=== PATIENT | male | born 1965 | race Caucasian/White ===

== ENCOUNTER 2018-10-23 13:15 | Inpatient (IN) | payer MEDICAID ==
[2018-10-23] MEDS ORDERED: Albuterol/Ipratropium 3.0-0.5 MG/3 ML Neb Soln NEB ONE (13:35)
[2018-10-23] MEDS ORDERED: Sodium Chloride 0.9% 10 ML Syringe FLUSH PRN (13:36)
[2018-10-23] MEDS ORDERED: Pantoprazole 40 MG Vial IVPUSH ONE (13:36)
[2018-10-23] MEDS ORDERED: Sodium Chloride 0.9% 2.5 ML Syringe FLUSH PRN (13:36)
[2018-10-23] MEDS ORDERED: Sodium Chloride 0.9% 1,000 ML IV ONE (13:36)
[2018-10-23] MEDS ORDERED: HYDROmorphone 1 MG/ML Syringe IVPUSH ONE ×2 (13:36→14:34)
[2018-10-23] MEDS ORDERED: Ondansetron 4 MG/2 ML SDV IVPUSH ONE (13:39)
--- NOTE | 2018-10-23 13:39 | EDM.PDOC ---
ED HPI GENERAL MEDICAL PROBLEM - General Chief Complaint: General Stated Complaint: FALL Time Seen by Provider: 10/23/18 13:24 - History of Present Illness INITIAL COMMENTS - FREE TEXT/NARRATIVE: HISTORY AND PHYSICAL: History of present illness: The patient is a 53-year-old male who says he has no stated medical problems and no GI cardiac or pulmonary history and presents with 2 complaints; first he had a fall 2 days ago and landed onto his left ribs and has had persistent pain since that time. He says he can't take a deep breath and feels short of breath and has a cough as a result of that fall. The patient is a smoker of cigarettes but denies drug use. He has been not taking much medication to help with the pain. He says he took some Aleve yesterday and nothing today. The patient says in general he has no history of GI problems such as acid reflux and heartburn or any abdominal issues in the past. Today he was doing his normal activities and approximately 2-3 hours ago he had sudden onset of diffuse upper abdominal pain which she is very vague about. He says it is very sharp and severe and he was nauseated with this but had no vomiting. He says he had one large diarrheal bowel movement that was maroon in color and he has never had that before. The patient took no [id number] meds for his stomach issues. The patient says he feels like he has to cough and he has pain without any can't take a deep breath and he also says that his abdominal pain is inhibiting his breathing but he has no specific chest pain. The patient says his abdominal pain is radiating to her shoulders. He has no specific midline back pain and no neurosensory changes or weakness in his legs. When he fell 2 days he did not hit his head pass out or black out and has no head neck or back pain. He has no extremity complaints. Patient also says that currently today after the bowel movement with a blood he feels very lightheaded but he has not passed out or black out. Review of systems: As per history of present illness and below otherwise all systems reviewed and negative. Past medical history: As per history of present illness and as reviewed below otherwise noncontributory. Surgical history: As per history of present illness and as reviewed below otherwise noncontributory. Social history: No reported history of drug or alcohol abuse. Family history: As per history of present illness and as reviewed below otherwise noncontributory. Physical exam: General: Well-developed well-nourished man who is nontoxic and looks very uncomfortable in the ED. He has a harsh cough which is dry in nature and he seems to be splinting when he is trying to take breaths. Vital signs are noted by me. Patient does not like to lie flat as he says he feels very uncomfortable. HEENT: Atraumatic, normocephalic, pupils reactive, negative for conjunctival pallor or scleral icterus, mucous membranes moist, throat clear, neck supple, nontender, trachea midline. Lungs: Image breath sounds and effort throughout with splinting and there is coarse breath sounds bilaterally decreased air exchange in the bases up to mid field and some scattered wheezing appreciated bilaterally, breath sounds equal bilaterally, chest wall and ribs are tender at the left mid axillary line without any ecchymosis erythema or crepitus. Heart: S1S2, regular, rhythm and slightly bradycardic rate on my evaluation no overt murmurs Abdomen: Soft, nondistended, and bowel sounds are very hypoactive. The patient has diffuse upper abdominal tenderness from the umbilicus upwards and it does not localize right or left and he has voluntary guarding and some rebound on my evaluation. I cannot evaluate for hepatosplenomegaly due to the patient's inability to relax. The lower abdomen seems softer and less tender bilaterally. Negative for costovertebral tenderness. Pelvis: Stable nontender. Genitourinary: Deferred. Rectal: Deferred. Extremities: Atraumatic, negative for cords or calf pain. Neurovascular unremarkable. Full range of motion without defects or deficits Neuro: Awake, alert, oriented. Cranial nerves II through XII unremarkable. Cerebellum unremarkable. Motor and sensory unremarkable throughout. Exam nonfocal. Diagnostics: CBC CMP INR EKG lactic acid amylase lipase H. pylori troponin left ribs with chest x-ray upright abdomen CT scan of the abdomen and pelvis Therapeutics: IV O2 monitor IV fluids Dilaudid Zofran duoneb Protonix 1503: Case was discussed with the surgeon on-call Dr Natarajan; he is aware of all the lab test results and the CT scan as well as the x-rays and will come and see the patient and evaluate for further care. I discussed with the patient all the testing results and the plan. 1518: Dr NATARAJAN was here in the ED and looked at CT and has left to review it with the radiologist and will return to evaluate the patient 1530: Dr Natarajan is here discussing options with the patient for care plan. Impression: Upper abdominal pain with episode of melena, small free air probable perforated ulcer Fall subacute with left rib contusion Definitive disposition and diagnosis as appropriate pending reevaluation and review of above. Abdominal Pain Score (Numeric/FACES): 10 - Related Data Allergies Allergy/AdvReac Type Severity Reaction Status Date / Time No Known Allergies Allergy Verified 10/23/18 13:23 Home Meds: Home Meds . [No Known Home Meds] 02/24/14 [History] Past Medical History - Past Health History Medical/Surgical History: Denies Medical/Surgical History - Infectious Disease History Infectious Disease History: Reports: Chicken Pox Social & Family History - Family History Family Medical History: Noncontributory - Tobacco Use Smoking Status *Q: Current Every Day Smoker Years of Tobacco use: 40 Packs/Tins Daily: 1 - Recreational Drug Use Recreational Drug Use: No ED ROS GENERAL - Review of Systems Review Of Systems: ROS reveals no pertinent complaints other than HPI. ED EXAM, GENERAL - Physical Exam Exam: See Below (See dictation) Course - Vital Signs Last Recorded V/S: Last Vital Signs Temp Pulse 66 10/23/18 13:36 Resp 16 10/23/18 13:36 BP 118/69 10/23/18 13:36 Pulse Ox 95 10/23/18 13:36 - Orders/Labs/Meds Orders: Active Orders 24 hr Category Date Time Status Cardiac Monitoring [RC] . DIRECTED Care 10/23/18 13:34 Active EKG Documentation Completion [RC] STAT Care 10/23/18 13:34 Active Notify Provider Consults [RC] ASDIRECTED Care 10/23/18 15:06 Active Oxygen Therapy, ED [RC] ASDIRECTED Care 10/23/18 13:34 Active Pulse Oximetry [RC] ASDIRECTED Care 10/23/18 13:34 Active RT Aerosol Therapy [RC] ASDIRECTED Care 10/23/18 13:36 Active Consult to Physician [CONS] Stat Cons 10/23/18 15:06 Active Lactated Ringers [Ringers, Lactated] 1,000 ml Med 10/23/18 15:00 Active IV ASDIRECTED Sodium Chloride 0.9% [Saline Flush] Med 10/23/18 13:36 Active 10 ml FLUSH ASDIRECTED PRN Sodium Chloride 0.9% [Saline Flush] Med 10/23/18 13:36 Active 2.5 ml FLUSH ASDIRECTED PRN Saline Lock Insert [OM.PC] Stat Oth 10/23/18 13:34 Ordered Medication Orders Lactated Ringer's (Ringers, Lactated) 1,000 mls @ 150 mls/hr IV ASDIRECTED KENTRELL Sodium Chloride (Saline Flush) 10 ml FLUSH ASDIRECTED PRN PRN Reason: Keep Vein Open Last Admin: 10/23/18 13:49 Dose: 10 ml Sodium Chloride (Saline Flush) 2.5 ml FLUSH ASDIRECTED PRN PRN Reason: Keep Vein Open Last Admin: 10/23/18 13:48 Dose: 2.5 ml Labs: Laboratory Tests 10/23/18 10/23/18 10/23/18 Range/Units 13:35 13:35 13:35 WBC 8.37 (4.0-11.0) K/uL RBC 4.83 (4.50-5.90) M/uL Hgb 15.2 (13.0-17.0) g/dL Hct 43.9 (38.0-50.0) % MCV 90.9 (80.0-98.0) fL MCH 31.5 (27.0-32.0) pg MCHC 34.6 (31.0-37.0) g/dL RDW Std Deviation 41.9 (28.0-62.0) fl RDW Coeff of Sarah 13 (11.0-15.0) % Plt Count 271 (150-400) K/uL MPV 10.40 (7.40-12.00) fL Neut % (Auto) 76.5 (48.0-80.0) % Lymph % (Auto) 12.4 L (16.0-40.0) % Crisp % (Auto) 10.6 (0.0-15.0) % Eos % (Auto) 0.4 (0.0-7.0) % Baso % (Auto) 0.1 (0.0-1.5) % Neut # (Auto) 6.4 H (1.4-5.7) K/uL Lymph # (Auto) 1.0 (0.6-2.4) K/uL Crisp # (Auto) 0.9 H (0.0-0.8) K/uL Eos # (Auto) 0.0 (0.0-0.7) K/uL Baso # (Auto) 0.0 (0.0-0.1) K/uL Nucleated RBC % 0.0 /100WBC Nucleated RBCs # 0 K/uL INR 1.05 Lactate (0.20-2.00) mmol/L Sodium 138 (136-148) mmol/L Potassium 3.7 (3.5-5.1) mmol/L Chloride 103 (98-107) mmol/L Carbon Dioxide 22.2 (21.0-32.0) mmol/L BUN 13 (7.0-18.0) mg/dL Creatinine 1.0 (0.8-1.3) mg/dL Est Cr Clr Drug Dosing TNP Estimated GFR (MDRD) > 60.0 ml/min Glucose 103 (74-106) mg/dL Calcium 9.4 (8.5-10.1) mg/dL Total Bilirubin 0.9 (0.2-1.0) mg/dL AST 31 (15-37) IU/L ALT 26 (14-63) IU/L Alkaline Phosphatase 51 (46-116) U/L Troponin I < 0.050 (0.000-0.056) ng/mL Total Protein 7.6 (6.4-8.2) g/dL Albumin 3.9 (3.4-5.0) g/dL Globulin 3.7 (2.6-4.0) g/dL Albumin/Globulin Ratio 1.1 (0.9-1.6) Amylase 42 (25-115) U/L Lipase 89 (73-393) U/L H. pylori IgG Antibody (NEG) 10/23/18 10/23/18 Range/Units 13:35 13:35 WBC (4.0-11.0) K/uL RBC (4.50-5.90) M/uL Hgb (13.0-17.0) g/dL Hct (38.0-50.0) % MCV (80.0-98.0) fL MCH (27.0-32.0) pg MCHC (31.0-37.0) g/dL RDW Std Deviation (28.0-62.0) fl RDW Coeff of Sarah (11.0-15.0) % Plt Count (150-400) K/uL MPV (7.40-12.00) fL Neut % (Auto) (48.0-80.0) % Lymph % (Auto) (16.0-40.0) % Crisp % (Auto) (0.0-15.0) % Eos % (Auto) (0.0-7.0) % Baso % (Auto) (0.0-1.5) % Neut # (Auto) (1.4-5.7) K/uL Lymph # (Auto) (0.6-2.4) K/uL Crisp # (Auto) (0.0-0.8) K/uL Eos # (Auto) (0.0-0.7) K/uL Baso # (Auto) (0.0-0.1) K/uL Nucleated RBC % /100WBC Nucleated RBCs # K/uL INR Lactate 1.2 (0.20-2.00) mmol/L Sodium (136-148) mmol/L Potassium (3.5-5.1) mmol/L Chloride (98-107) mmol/L Carbon Dioxide (21.0-32.0) mmol/L BUN (7.0-18.0) mg/dL Creatinine (0.8-1.3) mg/dL Est Cr Clr Drug Dosing Estimated GFR (MDRD) ml/min Glucose (74-106) mg/dL Calcium (8.5-10.1) mg/dL Total Bilirubin (0.2-1.0) mg/dL AST (15-37) IU/L ALT (14-63) IU/L Alkaline Phosphatase (46-116) U/L Troponin I (0.000-0.056) ng/mL Total Protein (6.4-8.2) g/dL Albumin (3.4-5.0) g/dL Globulin (2.6-4.0) g/dL Albumin/Globulin Ratio (0.9-1.6) Amylase (25-115) U/L Lipase (73-393) U/L H. pylori IgG Antibody NEGATIVE (NEG) Meds: Medications Generic Name Dose Route Start Last Admin Trade Name Freq PRN Reason Stop Dose Admin Lactated Ringer's 1,000 mls @ 150 mls/hr 10/23/18 15:00 Ringers, Lactated IV ASDIRECTED KENTRELL Sodium Chloride 10 ml 10/23/18 13:36 10/23/18 13:49 Saline Flush FLUSH 10 ml ASDIRECTED PRN Administration Keep Vein Open Sodium Chloride 2.5 ml 10/23/18 13:36 10/23/18 13:48 Saline Flush FLUSH 2.5 ml ASDIRECTED PRN Administration Keep Vein Open Discontinued Medications Generic Name Dose Route Start Last Admin Trade Name Freq PRN Reason Stop Dose Admin Albuterol/Ipratropium 3 ml 10/23/18 13:35 10/23/18 13:46 Duoneb 3.0-0.5 Mg/3 Ml NEB 10/23/18 13:36 3 ml ONETIME ONE Administration Hydromorphone HCl 1 mg 10/23/18 13:36 10/23/18 13:48 Dilaudid IVPUSH 10/23/18 13:37 1 mg ONETIME ONE Administration Hydromorphone HCl 1 mg 10/23/18 14:34 10/23/18 14:46 Dilaudid IVPUSH 10/23/18 14:35 1 mg ONETIME ONE Administration Sodium Chloride 1,000 mls @ 999 mls/hr 10/23/18 13:36 10/23/18 14:33 Normal Saline IV 10/23/18 14:36 999 mls/hr STAT ONE Infusion Ondansetron HCl 4 mg 10/23/18 13:39 10/23/18 13:48 Zofran IVPUSH 10/23/18 13:40 4 mg ONETIME ONE Administration Pantoprazole Sodium 80 mg 10/23/18 13:36 10/23/18 13:49 Protonix Iv IVPUSH 10/23/18 13:37 80 mg .BOLUS ONE Administration Departure - Departure Time of Disposition: 15:57 Disposition: Still A Patient 30 Condition: Fair Clinical Impression: Perforated ulcer - Discharge Information Referrals: PCP,Unknown [Primary Care Provider] - Forms: ED Department Discharge - My Orders Last 24 Hours: My Active Orders 10/23/18 13:34 Cardiac Monitoring [RC] . DIRECTED EKG Documentation Completion [RC] STAT Oxygen Therapy, ED [RC] ASDIRECTED Pulse Oximetry [RC] ASDIRECTED Saline Lock Insert [OM.PC] Stat 10/23/18 13:36 RT Aerosol Therapy [RC] ASDIRECTED Sodium Chloride 0.9% [Saline Flush] 10 ml FLUSH ASDIRECTED PRN Sodium Chloride 0.9% [Saline Flush] 2.5 ml FLUSH ASDIRECTED PRN 10/23/18 15:00 Lactated Ringers [Ringers, Lactated] 1,000 ml IV ASDIRECTED 10/23/18 15:06 Notify Provider Consults [RC] ASDIRECTED Consult to Physician [CONS] Stat - Assessment/Plan Last 24 Hours: My Active Orders 10/23/18 13:34 Cardiac Monitoring [RC] . DIRECTED EKG Documentation Completion [RC] STAT Oxygen Therapy, ED [RC] ASDIRECTED Pulse Oximetry [RC] ASDIRECTED Saline Lock Insert [OM.PC] Stat 10/23/18 13:36 RT Aerosol Therapy [RC] ASDIRECTED Sodium Chloride 0.9% [Saline Flush] 10 ml FLUSH ASDIRECTED PRN Sodium Chloride 0.9% [Saline Flush] 2.5 ml FLUSH ASDIRECTED PRN 10/23/18 15:00 Lactated Ringers [Ringers, Lactated] 1,000 ml IV ASDIRECTED 10/23/18 15:06 Notify Provider Consults [RC] ASDIRECTED Consult to Physician [CONS] Stat
[2018-10-23 14:09] LABS: CHLORIDE,CL 103 mmol/L (98-107); SODIUM,NA 138 mmol/L (136-148)
--- NOTE | 2018-10-23 14:21 | CR ---
EXAMINATION: Abdomen HISTORY: Pain COMPARISON: None TECHNIQUE: AP views FINDINGS: There is no free air under the diaphragm. There is a nonobstructive bowel gas pattern. No abnormal calcifications project over the kidneys. There are aspect of the abdomen not imaged. IMPRESSION: No acute findings or evidence of a bowel obstruction.
--- NOTE | 2018-10-23 14:24 | CR ---
EXAMINATION: AP chest and left RIBS HISTORY: Trauma. FINDINGS: The trachea is midline. The cardiomediastinal silhouette is within normal limits. No pulmonary infiltrates, effusions or pneumothorax. Osseous structures appear unremarkable. No displaced rib fracture identified. IMPRESSION: No acute cardiopulmonary process.
--- NOTE | 2018-10-23 14:50 | CT ---
CT of the abdomen and pelvis with contrast. HISTORY: Pain TECHNIQUE: Axial CT images were obtained of the abdomen and pelvis following administration of 100 mL of Isovue-370 in the right antecubital fossa without complication. Coronal and sagittal reconstructions obtained. FINDINGS: The lung bases are clear. Mild focal fatty infiltration near the falciform ligament. Spleen, adrenal glands, and pancreas appear normal. The gallbladder is normal. No retroperitoneal lymphadenopathy. There is a small amount of abdominal ascites and free air. Mild induration of the omentum within the right abdomen and lower quadrant. The kidneys enhance and function symmetrically without evidence of obstructive uropathy. There is a cyst within the upper pole of the right kidney. The large and small bowel are normal in caliber without evidence of obstruction. No focal pericolonic inflammation or stranding. The appendix appears normal. Urinary bladder wall is mildly thickened however minimally filled. No bulky pelvic lymphadenopathy. No suspicious osseous abnormalities identified. IMPRESSION: 1. Small amount of abdominal ascites and a trace amount of free air noted within the abdomen. The exact source is not identified.
[2018-10-23] MEDS ORDERED: cefOXitin 2 GM in Premix Bag 1 BAG IV ONE (15:59)
[2018-10-23] MEDS ORDERED: Lactated Ringers 1,000 ML IV SCH (16:00)
[2018-10-23] MEDS: Lactated Ringers 1,000 ML IV SCH ×2 (16:04→23:11)
--- NOTE | 2018-10-23 16:07 | PCM.SN ---
- Free Text/Narrative Note: pt seen, chart reviewed; free air, abd pain, wendy stool or BRBPR X 2 days; would benefit from timely ex lap, possible bowel resection, possible ostomy; r/ b d/w pt, pt concurred and proceed with surgery; h/p dictated; see dictation [id number]
[2018-10-23] MEDS ORDERED: cefOXitin 2 GM in Sodium Chloride 0.9% 100 ML IV ONE (16:10)
[2018-10-23] MEDS ORDERED: Midazolam 1 MG/ML 2 ML SDV ONE (16:50)
[2018-10-23] MEDS ORDERED: Ondansetron 4 MG/2 ML SDV ONE (16:50)
[2018-10-23] MEDS ORDERED: Rocuronium 10 MG/ML 10 ML Syringe ONE (16:50)
[2018-10-23] MEDS ORDERED: Propofol 200 MG/20 ML SDV ONE (16:50)
[2018-10-23] MEDS ORDERED: Lidocaine 2% 5 ML SDV ONE (16:50)
[2018-10-23] MEDS ORDERED: fentaNYL 250 MCG/5 ML SDV ONE (16:50)
--- NOTE | 2018-10-23 17:51 | PCM.PREANE ---
Preanesthetic Assessment - Anesthesia/Transfusion/Family Hx Anesthesia History: Prior Anesthesia Without Reaction Family History of Anesthesia Reaction: No Intubation History: Unknown - Review of Systems General: No Symptoms Pulmonary: No Symptoms Cardiovascular: No Symptoms Gastrointestinal: Abdominal Pain Neurological: No Symptoms Other: Reports: None - Physical Assessment O2 Sat by Pulse Oximetry: 95 Respiratory Rate: 16 Vital Signs: Last Vital Signs Temp Pulse 66 10/23/18 13:36 Resp 16 10/23/18 13:36 BP 118/69 10/23/18 13:36 Pulse Ox 95 10/23/18 13:36 ASA Class: 2E Mental Status: Alert & Oriented x3 Airway Class: Mallampati = 2 Dentition: Reports: Normal Dentition, [place](s) (gold crown #9) Thyro-Mental Finger Breadths: 3 Mouth Opening Finger Breadths: 3 ROM/Head Extension: Full Lungs: Clear to Auscultation, Normal Respiratory Effort Cardiovascular: Regular Rate, Regular Rhythm - Lab Values: Laboratory Last Values WBC 8.37 K/uL (4.0-11.0) 10/23/18 13:35 RBC 4.83 M/uL (4.50-5.90) 10/23/18 13:35 Hgb 15.2 g/dL (13.0-17.0) 10/23/18 13:35 Hct 43.9 % (38.0-50.0) 10/23/18 13:35 MCV 90.9 fL (80.0-98.0) 10/23/18 13:35 MCH 31.5 pg (27.0-32.0) 10/23/18 13:35 MCHC 34.6 g/dL (31.0-37.0) 10/23/18 13:35 RDW Std Deviation 41.9 fl (28.0-62.0) 10/23/18 13:35 RDW Coeff of Sarah 13 % (11.0-15.0) 10/23/18 13:35 Plt Count 271 K/uL (150-400) 10/23/18 13:35 MPV 10.40 fL (7.40-12.00) 10/23/18 13:35 Neut % (Auto) 76.5 % (48.0-80.0) 10/23/18 13:35 Lymph % (Auto) 12.4 % (16.0-40.0) L 10/23/18 13:35 [place] % (Auto) 10.6 % (0.0-15.0) 10/23/18 13:35 Eos % (Auto) 0.4 % (0.0-7.0) 10/23/18 13:35 Baso % (Auto) 0.1 % (0.0-1.5) 10/23/18 13:35 Neut # (Auto) 6.4 K/uL (1.4-5.7) H 10/23/18 13:35 Lymph # (Auto) 1.0 K/uL (0.6-2.4) 10/23/18 13:35 [place] # (Auto) 0.9 K/uL (0.0-0.8) H 10/23/18 13:35 Eos # (Auto) 0.0 K/uL (0.0-0.7) 10/23/18 13:35 Baso # (Auto) 0.0 K/uL (0.0-0.1) 10/23/18 13:35 Nucleated RBC % 0.0 /100WBC 10/23/18 13:35 Nucleated RBCs # 0 K/uL 10/23/18 13:35 INR 1.05 10/23/18 13:35 Lactate 1.2 mmol/L (0.20-2.00) 10/23/18 13:35 Sodium 138 mmol/L (136-148) 10/23/18 13:35 Potassium 3.7 mmol/L (3.5-5.1) 10/23/18 13:35 Chloride 103 mmol/L (98-107) 10/23/18 13:35 Carbon Dioxide 22.2 mmol/L (21.0-32.0) 10/23/18 13:35 BUN 13 mg/dL (7.0-18.0) 10/23/18 13:35 Creatinine 1.0 mg/dL (0.8-1.3) 10/23/18 13:35 Est Cr Clr Drug Dosing TNP 10/23/18 13:35 Estimated GFR (MDRD) > 60.0 ml/min 10/23/18 13:35 Glucose 103 mg/dL (74-106) 10/23/18 13:35 Calcium 9.4 mg/dL (8.5-10.1) 10/23/18 13:35 Total Bilirubin 0.9 mg/dL (0.2-1.0) 10/23/18 13:35 AST 31 IU/L (15-37) 10/23/18 13:35 ALT 26 IU/L (14-63) 10/23/18 13:35 Alkaline Phosphatase 51 U/L (46-116) 10/23/18 13:35 Troponin I < 0.050 ng/mL (0.000-0.056) 10/23/18 13:35 Total Protein 7.6 g/dL (6.4-8.2) 10/23/18 13:35 Albumin 3.9 g/dL (3.4-5.0) 10/23/18 13:35 Globulin 3.7 g/dL (2.6-4.0) 10/23/18 13:35 Albumin/Globulin Ratio 1.1 (0.9-1.6) 10/23/18 13:35 Amylase 42 U/L (25-115) 10/23/18 13:35 Lipase 89 U/L (73-393) 10/23/18 13:35 H. pylori IgG Antibody NEGATIVE (NEG) 10/23/18 13:35 - Allergies Allergies/Adverse Reactions: Allergies Allergy/AdvReac Type Severity Reaction Status Date / Time No Known Allergies Allergy Verified 10/23/18 13:23 - Blood Blood Available: No - Anesthesia Plan Pre-Op Medication Ordered: None - Acknowledgements Anesthesia Type Planned: General Anesthesia Pt an Appropriate Candidate for the Planned Anesthesia: Yes Alternatives and Risks of Anesthesia Discussed w Pt/Guardian: Yes Pt/Guardian Understands and Agrees with Anesthesia Plan: Yes PreAnesthesia Questionnaire - Past Health History Medical/Surgical History: Denies Medical/Surgical History Gastrointestinal History: Reports: Other (See Below) (presented with signs of peritonitis) Musculoskeletal History: Reports: Other (See Below) ( ORIF of mandible fx. x2) Other Musculoskeletal History: right hand surgery - Infectious Disease History Infectious Disease History: Reports: Chicken Pox - Past Surgical History Neurological Surgical History: Reports: C-Spine - SUBSTANCE USE Smoking Status *Q: Current Every Day Smoker (1 ppd) Recreational Drug Use History: No - HOME MEDS Home Medications: Home Meds . [No Known Home Meds] 02/24/14 [History] - CURRENT (IN HOUSE) MEDS Current Meds: Current Medications Lactated Ringer's (Ringers, Lactated) 1,000 mls @ 150 mls/hr IV ASDIRECTED KENTRELL Last Admin: 10/23/18 16:04 Dose: 150 mls/hr Lactated Ringer's (Ringers, Lactated) 1,000 mls @ 150 mls/hr IV ASDIRECTED KENTRELL Sodium Chloride (Saline Flush) 10 ml FLUSH ASDIRECTED PRN PRN Reason: Keep Vein Open Last Admin: 10/23/18 13:49 Dose: 10 ml Sodium Chloride (Saline Flush) 2.5 ml FLUSH ASDIRECTED PRN PRN Reason: Keep Vein Open Last Admin: 10/23/18 13:48 Dose: 2.5 ml Discontinued Medications Albuterol/Ipratropium (Duoneb 3.0-0.5 Mg/3 Ml) 3 ml NEB ONETIME ONE Stop: 10/23/18 13:36 Last Admin: 10/23/18 13:46 Dose: 3 ml Fentanyl (Sublimaze) Confirm Administered Dose 250 mcg .ROUTE .STK-MED ONE Stop: 10/23/18 16:51 Hydromorphone HCl (Dilaudid) 1 mg IVPUSH ONETIME ONE Stop: 10/23/18 13:37 Last Admin: 10/23/18 13:48 Dose: 1 mg Hydromorphone HCl (Dilaudid) 1 mg IVPUSH ONETIME ONE Stop: 10/23/18 14:35 Last Admin: 10/23/18 14:46 Dose: 1 mg Sodium Chloride (Normal Saline) 1,000 mls @ 999 mls/hr IV STAT ONE Stop: 10/23/18 14:36 Last Infusion: 10/23/18 14:33 Dose: 999 mls/hr Cefoxitin Sodium 2 gm/ Premix 50 mls @ 100 mls/hr IV ONETIME ONE Stop: 10/23/18 16:28 Cefoxitin Sodium 2 gm/ Sodium (Chloride) 100 mls @ 200 mls/hr IV ONETIME ONE Stop: 10/23/18 16:28 Last Admin: 10/23/18 16:14 Dose: 200 mls/hr Lidocaine (Xylocaine-Mpf 2%) Confirm Administered Dose 5 ml .ROUTE .STK-MED ONE Stop: 10/23/18 16:51 Midazolam HCl (Versed 1 Mg/Ml) Confirm Administered Dose 2 mg .ROUTE .STK-MED ONE Stop: 10/23/18 16:51 Ondansetron HCl (Zofran) 4 mg IVPUSH ONETIME ONE Stop: 10/23/18 13:40 Last Admin: 10/23/18 13:48 Dose: 4 mg Ondansetron HCl (Zofran) Confirm Administered Dose 4 mg .ROUTE .STK-MED ONE Stop: 10/23/18 16:51 Pantoprazole Sodium (Protonix Iv) 80 mg IVPUSH .BOLUS ONE Stop: 10/23/18 13:37 Last Admin: 10/23/18 13:49 Dose: 80 mg Propofol (Diprivan 20 Ml) Confirm Administered Dose 200 mg .ROUTE .STK-MED ONE Stop: 10/23/18 16:51 Rocuronium Viking (Zemuron) Confirm Administered Dose 100 mg .ROUTE .STK-MED ONE Stop: 10/23/18 16:51
[2018-10-23] MEDS ORDERED: Iopamidol 755 MG/ML 200 ML Multipack Bottle IVPUSH STA (18:15)
[2018-10-23] MEDS ORDERED: HYDROmorphone 2 MG/ML Syringe ONE ×2 (18:17→19:19)
[2018-10-23] MEDS ORDERED: Atropine 0.1 MG/ML 10 ML Syringe IVPUSH PRN (20:20)
[2018-10-23] MEDS ORDERED: Naloxone 0.4 MG/ML Syringe IVPUSH PRN (20:20)
[2018-10-23] MEDS ORDERED: 50% Dextrose in Water 50 ML Syringe IVPUSH PRN (20:20)
[2018-10-23] MEDS ORDERED: Atropine 1 MG/ML SDV IVPUSH PRN (20:20)
[2018-10-23] MEDS ORDERED: EPINEPHrine 1 MG/ML SDV IVPUSH ONE (20:20)
[2018-10-23] MEDS ORDERED: fentaNYL 100 MCG/2 ML SDV IVPUSH PRN (20:20)
[2018-10-23] MEDS ORDERED: Albuterol 0.083% 2.5 MG/3 ML Neb Soln NEB PRN (20:20)
[2018-10-23] MEDS ORDERED: Pantoprazole 80 MG in Sodium Chloride 0.9% 100 ML IV SCH (20:30)
--- NOTE | 2018-10-23 20:43 | PCM.OPNOTE ---
- General Post-Op/Procedure Note Date of Surgery/Procedure: 10/23/18 Operative Procedure(s): 1) ex lap. 2) grahm patch. 3) bx gastric ulcer Findings: a 1 cm hole right 1 cm distal to pylorus; grahm patched. 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
[2018-10-23] MEDS: Morphine PF 30 MG/30 ML PCA Vial IV SCH (20:44)
--- NOTE | 2018-10-23 21:10 | PCM.POSTAN ---
POST ANESTHESIA ASSESSMENT - MENTAL STATUS Mental Status: Alert, Oriented - RESPIRATORY Respiratory Status: Respiratory Rate WNL, Airway Patent, O2 Saturation Stable, Supplemental Oxygen - CARDIOVASCULAR CV Status: Pulse Rate WNL, Blood Pressure Stable - GASTROINTESTINAL GI Status: No Symptoms - PAIN Pain Score: 4 (sedate) - POST OP HYDRATION Hydration Status: Adequate & Stable - OBSERVATIONS Free Text/Narrative:: Pt on o2 per face tent and stable with pain control. No nausea at this time and TROUBLE LOCATOR TEST DESK morphine currently onboard.
--- NOTE | 2018-10-23 23:23 | OR ---
SURGEON: Wally Natarajan MD DATE OF PROCEDURE: 10/23/2018 PREOPERATIVE DIAGNOSIS: Perforated viscus. POSTOPERATIVE DIAGNOSIS: Perforated peptic ulcer disease. PROCEDURES PERFORMED: 1. Exploratory laparotomy. 2. Varinder patch. 3. biopsy gastric ulcer COMPLICATION: None. FINDINGS: Very clean cut 1 cm hole, right 1 cm distal to the pylorus and Varinder patch procedure performed. Also, the abdominal cavity is severely contaminated. Doubt this is 4- to 6-hour perforation, more likely a couple of days BRIEF SURGICAL JUSTIFICATION: The patient is a 53-year-old gentleman, complained of a 2-day history of waxing and waning abdominal pain, seen in emergency room. CAT scan showed free air. The patient is now taken to the operating room. DESCRIPTION OF PROCEDURE: The patient was taken to the operating room and placed in supine position. Upon induction of general endotracheal anesthesia, the patient's abdomen was prepped and draped in a sterile fashion. Time-out was being called, the patient identified, procedure identified. A 2 g IV Mefoxin given prophylactically. After assessment of appropriate landmark, a midline incision from epigastric beveled to the right of the umbilicus and down to the pubis was made which entered the peritoneal cavity in a standard fashion. Upon gaining entrance into the peritoneal cavity, encountered a large amount of purulent, bile stained, yellow peritoneal fluid, cloudy. On examination starting with the stomach between the gallbladder and the duodenum and a bit distal to pylorus, a 1 cm gastric ulcer was noted, located at the dependent position of the stomach; and a biopsy was done over there and sent for pathology, and the hole was closed in a vertical mattress fashion using 3-0 Vicryl and followed by Varinder patch using 3-0 silk, anchored at 3 points, and followed by extensive irrigation until the irrigation was clear, irrigated the right gutter and the left gutter and the pelvis, and then the peritoneal cavity was closed with double-stranded #1 PDS, and prior to closing, sponge count was correct and 10 flat GILBERT drain was inserted on the right lower quadrant, and also prior to closing, bowel has been run from the appendix to the rectum and also from appendix to the duodenum and do not find a disease. The peritoneal cavity was closed with double-stranded #1 PDS and skin staple and an appropriate dressing. The patient was awakened, extubated, and transferred to recovery in hemodynamically stable condition. The patient tolerated the procedure well. There were no intraoperative complications. Dr. Natarajan was present through the whole procedure. As always, thank you for the kind referral. DAKOTA RICKETTS /[id number] MTDD
[2018-10-24] MEDS: Acetaminophen 1,000 MG in Premix Bag 1 BAG IV PRN (05:39)
[2018-10-24] MEDS: Lactated Ringers 1,000 ML IV SCH ×3 (05:39→23:38)
[2018-10-24 06:27] LABS: CHLORIDE,CL 106 mmol/L (98-107); SODIUM,NA 139 mmol/L (136-148)
[2018-10-24] MEDS: Morphine PF 30 MG/30 ML PCA Vial IV SCH ×2 (08:34→19:57)
[2018-10-24] MEDS: Nicotine 21 MG/24 Hr Patch TRDERM SCH (08:35)
--- NOTE | 2018-10-24 08:38 | CONS ---
DATE OF CONSULTATION: 10/23/2018 DATE OF : 1965 PRIMARY CARE PHYSICIAN: Unknown PCP REASON FOR CONSULTATION: Concerning question is perforated viscus. HISTORY OF PRESENT ILLNESS: The patient is a 53-year-old gentleman complaining of several day history of abdominal pain, after he fell down on the ice 2 days ago. His main complaint is a little bit like lower ribcage on the left side. In addition, he thinks the pain is more or less doable until this morning at 1100 hours, he knows exactly the time that it happened, the pain intensified. He sought help in the emergency room, had emergent CAT scan, which shows free air. Surgery was then consulted. The patient then remarked that he had some bloody maroon stool this morning, and he was very nauseated for about 2 days and cannot even swallow his saliva. PAST MEDICAL HISTORY: Significant for no diabetes, IN, CVA, or hypertension. PAST SURGICAL HISTORY: No abdominal surgery. ALLERGIES: Please refer to nursing for details. MEDICATIONS: Please refer to nursing for details. SOCIAL HISTORY: The patient is a big time smoker, chain smoker and alcohol user. REVIEW OF SYSTEMS: Same as history of present illness. FAMILY HISTORY: Noncontributory. PHYSICAL EXAMINATION: GENERAL: Very appropriately built gokul. Not fat, not thin. Sitting up and refused to lie down, as he is not comfortable when lying down, very anxious. HEENT: Normocephalic and atraumatic. Sclerae anicteric. LUNGS: Clear to auscultation. HEART: Regular rate and rhythm. ABDOMEN: Soft, nondistended, not tympanitic, but exquisite tenderness in epigastrium. Minimal rebound tenderness. LABORATORY DATA: Upon consultation, white count is 8,000, platelet is 271,000, H and H are 15 and 44. INR is 105. Potassium is 3.7, BUN is 13, creatinine is 1.0. Liver function tests within normal limit. Albumin is 3.9. Amylase and lipase are normal at 42 and 89. CAT scan shows free air. IMPRESSION/PLAN: Free air after trauma/fall or perforated peptic ulcer disease. The patient probably will benefit from exploratory laparotomy, possible bowel resection, possible ostomy. Spent 50 minutes with Radiology. The patient has perforated viscus from the history and physical and pain and also maroon stool and also free air on CAT scan. The patient would benefit from an exploratory laparotomy and possible bowel resection, possible ostomy. Risks and benefits discussed with the patient, and the patient concurred to proceed. Also because sometimes small perforation may not be able to detect and could be a negative laparotomy. The patient concurred to proceed as planned. We will start IV antibiotic and IV fluids and proceed with surgery. The patient concurred. As always, thank you for the kind referral. DAKOTA / JAMARCUS /[id number]
--- NOTE | 2018-10-24 15:23 | PCM.SURGPN ---
- General Info Date of Service: 10/24/18 Functional Status: Reports: Pain Controlled - Review of Systems General: Reports: No Symptoms ("pain is a lot better") - Patient Data Vitals - Most Recent: Last Vital Signs Temp 98.1 F 10/24/18 11:40 Pulse 81 10/24/18 11:40 Resp 16 10/24/18 11:40 BP 111/50 L 10/24/18 11:40 Pulse Ox 93 L 10/24/18 11:40 Weight - Most Recent: 175 lb I&O - Last 24 Hours: Intake & Output 10/24/18 10/24/18 10/24/18 06:59 14:59 22:59 Intake Total 2151 999 Output Total 770 Balance 1381 999 Lab Results Last 24 Hrs: Laboratory Results - last 24 hr 10/23/18 10/24/18 10/24/18 Range/Units 17:27 05:50 05:50 WBC 10.48 (4.0-11.0) K/uL RBC 3.84 L (4.50-5.90) M/uL Hgb 11.9 L (13.0-17.0) g/dL Hct 35.3 L (38.0-50.0) % MCV 91.9 (80.0-98.0) fL MCH 31.0 (27.0-32.0) pg MCHC 33.7 (31.0-37.0) g/dL RDW Std Deviation 42.7 (28.0-62.0) fl RDW Coeff of Sarah 13 (11.0-15.0) % Plt Count 211 (150-400) K/uL MPV 10.10 (7.40-12.00) fL Neut % (Auto) 76.7 (48.0-80.0) % Lymph % (Auto) 11.7 L (16.0-40.0) % Wilson % (Auto) 11.5 (0.0-15.0) % Eos % (Auto) 0.0 (0.0-7.0) % Baso % (Auto) 0.1 (0.0-1.5) % Neut # (Auto) 8.0 H (1.4-5.7) K/uL Lymph # (Auto) 1.2 (0.6-2.4) K/uL Wilson # (Auto) 1.2 H (0.0-0.8) K/uL Eos # (Auto) 0.0 (0.0-0.7) K/uL Baso # (Auto) 0.0 (0.0-0.1) K/uL Nucleated RBC % 0.0 /100WBC Nucleated RBCs # 0 K/uL Sodium 139 (136-148) mmol/L Potassium 4.4 (3.5-5.1) mmol/L Chloride 106 (98-107) mmol/L Carbon Dioxide 24.1 (21.0-32.0) mmol/L BUN 12 (7.0-18.0) mg/dL Creatinine 0.9 (0.8-1.3) mg/dL Est Cr Clr Drug Dosing 105.53 mL/min Estimated GFR (MDRD) > 60.0 ml/min Glucose 93 (74-106) mg/dL Calcium 8.2 L (8.5-10.1) mg/dL Total Bilirubin 0.6 (0.2-1.0) mg/dL AST 26 (15-37) IU/L ALT 21 (14-63) IU/L Alkaline Phosphatase 31 L (46-116) U/L Total Protein 5.4 L (6.4-8.2) g/dL Albumin 2.5 L (3.4-5.0) g/dL Globulin 2.9 (2.6-4.0) g/dL Albumin/Globulin Ratio 0.9 (0.9-1.6) Blood Type O NEGATIVE Antibody Screen NEGATIVE Crossmatch See Detail Med Orders - Current: Current Medications Albuterol (Proventil Neb Soln) 2.5 mg NEB ONETIME PRN PRN Reason: Wheezing Acetaminophen 1,000 mg/ Premix 100 mls @ 400 mls/hr IV Q6H PRN PRN Reason: Pain Last Admin: 10/24/18 05:39 Dose: 400 mls/hr Lactated Ringer's (Ringers, Lactated) 1,000 mls @ 125 mls/hr IV ASDIRECTED KENTRELL Last Admin: 10/24/18 14:14 Dose: 125 mls/hr Morphine Sulfate (Morphine Synthetic Department Supervisor 30 Mg In 30 Ml) 30 mg IV ASDIRECTED KENTRELL; Protocol Last Admin: 10/24/18 08:34 Dose: 30 mg Nicotine (Habitrol) 21 mg TRDERM DAILY [facility] Last Admin: 10/24/18 08:35 Dose: 21 mg Pantoprazole Sodium (Protonix Iv) 40 mg IVPUSH BID [facility] Sodium Chloride (Saline Flush) 10 ml FLUSH ASDIRECTED PRN PRN Reason: Keep Vein Open Last Admin: 10/23/18 13:49 Dose: 10 ml Sodium Chloride (Saline Flush) 2.5 ml FLUSH ASDIRECTED PRN PRN Reason: Keep Vein Open Last Admin: 10/23/18 13:48 Dose: 2.5 ml Discontinued Medications Albuterol/Ipratropium (Duoneb 3.0-0.5 Mg/3 Ml) 3 ml NEB ONETIME ONE Stop: 10/23/18 13:36 Last Admin: 10/23/18 13:46 Dose: 3 ml Atropine Sulfate (Atropine 1 Mg/Ml) 1 mg IVPUSH ASDIRECTED PRN PRN Reason: ACLS Guidelines Atropine Sulfate (Atropine 0.1 Mg/Ml) 0.5 mg IVPUSH ASDIRECTED PRN PRN Reason: Hypo-Perfusion Dextrose/Water (Dextrose 50% In Water) 50 ml IVPUSH ASDIRECTED PRN PRN Reason: Hypoglycemia Epinephrine HCl (Adrenalin) 1 mg IVPUSH NOW ONE Stop: 10/23/18 20:21 Last Admin: 10/24/18 00:07 Dose: Not Given Fentanyl (Sublimaze) Confirm Administered Dose 250 mcg .ROUTE .STK-MED ONE Stop: 10/23/18 16:51 Fentanyl (Sublimaze) 50 - 100 mcg IVPUSH Q5M PRN PRN Reason: Pain Hydromorphone HCl (Dilaudid) 1 mg IVPUSH ONETIME ONE Stop: 10/23/18 13:37 Last Admin: 10/23/18 13:48 Dose: 1 mg Hydromorphone HCl (Dilaudid) 1 mg IVPUSH ONETIME ONE Stop: 10/23/18 14:35 Last Admin: 10/23/18 14:46 Dose: 1 mg Hydromorphone HCl (Dilaudid) Confirm Administered Dose 2 mg .ROUTE .STK-MED ONE Stop: 10/23/18 18:18 Hydromorphone HCl (Dilaudid) Confirm Administered Dose 2 mg .ROUTE .STK-MED ONE Stop: 10/23/18 19:20 Sodium Chloride (Normal Saline) 1,000 mls @ 999 mls/hr IV STAT ONE Stop: 10/23/18 14:36 Last Infusion: 10/23/18 14:33 Dose: 999 mls/hr Lactated Ringer's (Ringers, Lactated) 1,000 mls @ 150 mls/hr IV ASDIRECTED [facility] Last Admin: 10/23/18 23:11 Dose: 150 mls/hr Cefoxitin Sodium 2 gm/ Premix 50 mls @ 100 mls/hr IV ONETIME ONE Stop: 10/23/18 16:28 Last Admin: 10/24/18 00:10 Dose: Not Given Lactated Ringer's (Ringers, Lactated) 1,000 mls @ 150 mls/hr IV ASDIRECTED [facility] Cefoxitin Sodium 2 gm/ Sodium (Chloride) 100 mls @ 200 mls/hr IV ONETIME ONE Stop: 10/23/18 16:28 Last Admin: 10/23/18 16:14 Dose: 200 mls/hr Acetaminophen (Ofirmev) Confirm Administered Dose 100 mls @ as directed IV .STK- MED ONE Stop: 10/23/18 19:22 Pantoprazole Sodium 80 mg/ (Sodium Chloride) 100 mls @ 10 mls/hr IV Q24H [facility] Last Admin: 10/23/18 23:49 Dose: 10 mls/hr Iopamidol (Isovue Multipack-370 (76%)) 100 ml IVPUSH ONETIME STA Stop: 10/23/18 18:16 Last Admin: 10/23/18 18:16 Dose: 100 ml Lidocaine (Xylocaine-Mpf 2%) Confirm Administered Dose 5 ml .ROUTE .STK-MED ONE Stop: 10/23/18 16:51 Midazolam HCl (Versed 1 Mg/Ml) Confirm Administered Dose 2 mg .ROUTE .STK-MED ONE Stop: 10/23/18 16:51 Naloxone HCl (Narcan) 0.1 mg IVPUSH ASDIRECTED PRN PRN Reason: Respiratory Depression Ondansetron HCl (Zofran) 4 mg IVPUSH ONETIME ONE Stop: 10/23/18 13:40 Last Admin: 10/23/18 13:48 Dose: 4 mg Ondansetron HCl (Zofran) Confirm Administered Dose 4 mg .ROUTE .STK-MED ONE Stop: 10/23/18 16:51 Pantoprazole Sodium (Protonix Iv) 80 mg IVPUSH .BOLUS ONE Stop: 10/23/18 13:37 Last Admin: 10/23/18 13:49 Dose: 80 mg Propofol (Diprivan 20 Ml) Confirm Administered Dose 200 mg .ROUTE .STK-MED ONE Stop: 10/23/18 16:51 Rocuronium [place] (Zemuron) Confirm Administered Dose 100 mg .ROUTE .STK-MED ONE Stop: 10/23/18 16:51 - Exam GI/Abdominal Exam: Normal Bowel Sounds, Soft, No Distention (drsg intact) - Problem List Review Problem List Initiated/Reviewed/Updated: Yes - My Orders Last 24 Hours: Active Orders 24 hr Category Date Time Status Admission Status [Patient Status] [ADT] Routine ADT 10/23/18 20:24 Active Patient Status [ADT] Stat ADT 10/23/18 15:57 Active Communication Order [RC] ROUTINE Care 10/23/18 20:23 Active Communication Order [RC] ROUTINE Care 10/23/18 20:34 Active Communication Order [RC] ROUTINE Care 10/23/18 20:36 Active Communication Order [RC] ROUTINE Care 10/23/18 20:54 Active Daily Weight [Height and Weight] [RC] DAILY Care 10/23/18 20:32 Active Intake and Output Strict [RC] Q12H Care 10/23/18 20:32 Active NG [Gastrointestinal Tube Mgmt] [RC] Q12H Care 10/23/18 20:53 Active Notify Provider Consults [RC] ASDIRECTED Care 10/23/18 15:06 Active Overnight Pulse Oximetry [RC] Click to Edit Care 10/23/18 21:23 Active Consult to Physician [CONS] Stat Cons 10/23/18 15:06 Active Nothing per Oral After Midnight Diet [DIET] Diet 10/24/18 Breakfast Active RED BLOOD CELLS LP [BBK] Stat Lab 10/23/18 17:27 Results TYPE AND SCREEN [BBK] Stat Lab 10/23/18 17:27 Results Acetaminophen [Ofirmev] 1,000 mg Med 10/23/18 20:28 Active Premix Bag 1 bag IV Q6H Albuterol [Proventil Neb Soln] Med 10/23/18 20:20 Active 2.5 mg NEB ONETIME PRN Lactated Ringers [Ringers, Lactated] 1,000 ml Med 10/23/18 20:45 Active IV ASDIRECTED Morphine PF [Morphine STRIP CLEANER 30 MG in 30 ML] Med 10/23/18 20:30 Active 30 mg IV ASDIRECTED Nicotine [Habitrol] Med 10/24/18 09:00 Active 21 mg TRDERM DAILY Pantoprazole [ProTONIX IV] Med 10/24/18 21:00 Active 40 mg IVPUSH BID Pulse Oximetry Continuous Monitoring [OM.PC] Routine Oth 10/23/18 21:19 Ordered Medication Orders Albuterol (Proventil Neb Soln) 2.5 mg NEB ONETIME PRN PRN Reason: Wheezing Acetaminophen 1,000 mg/ Premix 100 mls @ 400 mls/hr IV Q6H PRN PRN Reason: Pain Last Admin: 10/24/18 05:39 Dose: 400 mls/hr Lactated Ringer's (Ringers, Lactated) 1,000 mls @ 125 mls/hr IV ASDIRECTED [facility] Last Admin: 10/24/18 14:14 Dose: 125 mls/hr Infusion: 10/24/18 13:39 Dose: 125 mls/hr Admin: 10/24/18 05:39 Dose: 125 mls/hr Morphine Sulfate (Morphine Synthetic Department Supervisor 30 Mg In 30 Ml) 30 mg IV ASDIRECTED KENTRELL; Protocol Last Admin: 10/24/18 08:34 Dose: 30 mg Admin: 10/23/18 20:44 Dose: 30 mg Nicotine (Habitrol) 21 mg TRDERM DAILY [facility] Last Admin: 10/24/18 08:35 Dose: 21 mg Pantoprazole Sodium (Protonix Iv) 40 mg IVPUSH BID [facility] Sodium Chloride (Saline Flush) 10 ml FLUSH ASDIRECTED PRN PRN Reason: Keep Vein Open Last Admin: 10/23/18 13:49 Dose: 10 ml Sodium Chloride (Saline Flush) 2.5 ml FLUSH ASDIRECTED PRN PRN Reason: Keep Vein Open Last Admin: 10/23/18 13:48 Dose: 2.5 ml - Assessment Assessment (Free Text/Narrative):: doing well postop; ngt keep till pass gas, do not advance; npo on ice chip, would not start po till bowel functions; continue protonix/iv mefoxin; lab results looked good; - Plan Plan (Free Text/Narrative):: doing well postop; ngt keep till pass gas, do not advance; npo on ice chip, would not start po till bowel functions; continue protonix/iv mefoxin; lab results looked good;
[2018-10-24] MEDS: cefOXitin 1 GM in Premix Bag 1 BAG IV SCH ×2 (15:36→20:44)
[2018-10-24] MEDS ORDERED: guaiFENesin/Dextromethorphan 100-10 MG/5 ML Soln 10 ML Cup PO PRN (15:53)
--- NOTE | 2018-10-24 17:54 | PCM.SN ---
- Free Text/Narrative Note: Pt doing well postop day #1 from perforated PUD, s/p ex lap and luis patch; currently on ngt/ice chips/iv abx and patsy drains. Pt is hemodynamically stable, ngt will stay till bowel function, and with severe contaimination, perforation much more than 2 days, will keep iv abx for awhile and home on abx as pt is at risks for abd abscess; will keep patsy 48 HRS pass oral diet.
--- NOTE | 2018-10-24 18:24 | PCM48HPAN ---
Post Anesthesia Note - EVALUATION WITHIN 48HRS OF ANESTHETIC Vital Signs in Normal Range: Yes Patient Participated in Evaluation: Yes Respiratory Function Stable: Yes Airway Patent: Yes Cardiovascular Function Stable: Yes Hydration Status Stable: Yes Pain Control Satisfactory: Yes Nausea and Vomiting Control Satisfactory: Yes Mental Status Recovered: Yes Resp Rate: 20
[2018-10-24] MEDS: Pantoprazole 40 MG Vial IVPUSH SCH (20:43)
[2018-10-25] MEDS: Acetaminophen 1,000 MG in Premix Bag 1 BAG IV PRN (00:21)
[2018-10-25] MEDS: cefOXitin 1 GM in Premix Bag 1 BAG IV SCH ×4 (03:44→20:59)
[2018-10-25] MEDS: Lactated Ringers 1,000 ML IV SCH ×2 (09:04→18:25)
[2018-10-25] MEDS: Nicotine 21 MG/24 Hr Patch TRDERM SCH (09:46)
[2018-10-25] MEDS: Pantoprazole 40 MG Vial IVPUSH SCH ×2 (09:46→21:01)
[2018-10-25] MEDS: Benzocaine/Cetylpyridinium/Menthol Lozenge MUCMEM PRN ×3 (11:08→21:15)
[2018-10-25] MEDS ORDERED: Albuterol 8 GM Inhaler INH PRN (15:04)
[2018-10-25] MEDS: Enoxaparin 40 MG/0.4 ML Syringe SUBCUT SCH (15:59)
--- NOTE | 2018-10-25 16:27 | PCM.SURGPN ---
- General Info Date of Service: 10/25/18 Date of Surgery/Procedure: 10/23/18 POD#: 2 Functional Status: Reports: Other (Patient's pain is under good control. Low grade temps last evening. He has not been getting out of bed. He complained of some right sided chest pain this afternoon. ) - Review of Systems General: Reports: Fever HEENT: Reports: Sore Throat Pulmonary: Reports: Pleuritic Chest Pain, Cough Cardiovascular: Reports: No Symptoms Gastrointestinal: Reports: Constipation. Denies: Diarrhea, Difficulty Swallowing, Flatus, Nausea, Vomiting Genitourinary: Reports: No Symptoms Musculoskeletal: Reports: No Symptoms Skin: Reports: No Symptoms Neurological: Reports: No Symptoms Psychiatric: Reports: No Symptoms - Patient Data Vitals - Most Recent: Last Vital Signs Temp 37.8 C 10/25/18 16:00 Pulse 79 10/25/18 16:00 Resp 18 10/25/18 16:00 BP 125/69 10/25/18 16:00 Pulse Ox 94 L 10/25/18 16:00 Weight - Most Recent: 79.515 kg I&O - Last 24 Hours: Intake & Output 10/25/18 10/25/18 10/25/18 06:59 14:59 22:59 Intake Total 1345 1049 491 Output Total 990 1165 Balance 355 1049 -674 Lab Results Last 24 Hrs: Laboratory Results - last 24 hr 10/25/18 Range/Units 09:00 WBC 9.79 (4.0-11.0) K/uL RBC 3.70 L (4.50-5.90) M/uL Hgb 11.6 L (13.0-17.0) g/dL Hct 33.6 L (38.0-50.0) % MCV 90.8 (80.0-98.0) fL MCH 31.4 (27.0-32.0) pg MCHC 34.5 (31.0-37.0) g/dL RDW Std Deviation 41.3 (28.0-62.0) fl RDW Coeff of Sarah 13 (11.0-15.0) % Plt Count 210 (150-400) K/uL MPV 10.90 (7.40-12.00) fL Nucleated RBC % 0.0 /100WBC Nucleated RBCs # 0 K/uL Med Orders - Current: Current Medications Albuterol (Ventolin Hfa) 0 gm INH Q4H PRN PRN Reason: Wheezing Benzocaine/Menthol (Cepacol Sore Throat) 1 lozenge MUCMEM Q2HR PRN PRN Reason: Sore Throat Last Admin: 10/25/18 15:58 Dose: 1 lozenge Enoxaparin Sodium (Lovenox) 40 mg SUBCUT Q24H [facility] Last Admin: 10/25/18 15:59 Dose: 40 mg Guaifenesin/Dextromethorphan (Robitussin Dm) 5 ml PO Q4H PRN PRN Reason: Cough Last Admin: 10/24/18 16:23 Dose: 5 ml Acetaminophen 1,000 mg/ Premix 100 mls @ 400 mls/hr IV Q6H PRN PRN Reason: Pain Last Admin: 10/25/18 00:21 Dose: 400 mls/hr Lactated Ringer's (Ringers, Lactated) 1,000 mls @ 125 mls/hr IV ASDIRECTED [facility] Last Admin: 10/25/18 09:04 Dose: 125 mls/hr Cefoxitin Sodium 1 gm/ Premix 50 mls @ 100 mls/hr IV Q6H [facility] Last Admin: 10/25/18 15:33 Dose: 100 mls/hr Morphine Sulfate (Morphine Buy Boat Operator 30 Mg In 30 Ml) 30 mg IV ASDIRECTED [facility]; Protocol Last Admin: 10/24/18 19:57 Dose: 30 mg Nicotine (Habitrol) 21 mg TRDERM DAILY [facility] Last Admin: 10/25/18 09:46 Dose: 21 mg Pantoprazole Sodium (Protonix Iv) 40 mg IVPUSH BID [facility] Last Admin: 10/25/18 09:46 Dose: 40 mg Sodium Chloride (Saline Flush) 10 ml FLUSH ASDIRECTED PRN PRN Reason: Keep Vein Open Last Admin: 10/23/18 13:49 Dose: 10 ml Sodium Chloride (Saline Flush) 2.5 ml FLUSH ASDIRECTED PRN PRN Reason: Keep Vein Open Last Admin: 10/23/18 13:48 Dose: 2.5 ml Sodium Chloride (Laura Nasal [place]) 2 ml RAHEEM Q2H PRN PRN Reason: Congestion Discontinued Medications Albuterol (Proventil Neb Soln) 2.5 mg NEB ONETIME PRN PRN Reason: Wheezing Albuterol/Ipratropium (Duoneb 3.0-0.5 Mg/3 Ml) 3 ml NEB ONETIME ONE Stop: 10/23/18 13:36 Last Admin: 10/23/18 13:46 Dose: 3 ml Atropine Sulfate (Atropine 1 Mg/Ml) 1 mg IVPUSH ASDIRECTED PRN PRN Reason: ACLS Guidelines Atropine Sulfate (Atropine 0.1 Mg/Ml) 0.5 mg IVPUSH ASDIRECTED PRN PRN Reason: Hypo-Perfusion Dextrose/Water (Dextrose 50% In Water) 50 ml IVPUSH ASDIRECTED PRN PRN Reason: Hypoglycemia Epinephrine HCl (Adrenalin) 1 mg IVPUSH NOW ONE Stop: 10/23/18 20:21 Last Admin: 10/24/18 00:07 Dose: Not Given Fentanyl (Sublimaze) Confirm Administered Dose 250 mcg .ROUTE .STK-MED ONE Stop: 10/23/18 16:51 Fentanyl (Sublimaze) 50 - 100 mcg IVPUSH Q5M PRN PRN Reason: Pain Hydromorphone HCl (Dilaudid) 1 mg IVPUSH ONETIME ONE Stop: 10/23/18 13:37 Last Admin: 10/23/18 13:48 Dose: 1 mg Hydromorphone HCl (Dilaudid) 1 mg IVPUSH ONETIME ONE Stop: 10/23/18 14:35 Last Admin: 10/23/18 14:46 Dose: 1 mg Hydromorphone HCl (Dilaudid) Confirm Administered Dose 2 mg .ROUTE .STK-MED ONE Stop: 10/23/18 18:18 Hydromorphone HCl (Dilaudid) Confirm Administered Dose 2 mg .ROUTE .STK-MED ONE Stop: 10/23/18 19:20 Sodium Chloride (Normal Saline) 1,000 mls @ 999 mls/hr IV STAT ONE Stop: 10/23/18 14:36 Last Infusion: 10/23/18 14:33 Dose: 999 mls/hr Lactated Ringer's (Ringers, Lactated) 1,000 mls @ 150 mls/hr IV ASDIRECTED [facility] Last Admin: 10/23/18 23:11 Dose: 150 mls/hr Cefoxitin Sodium 2 gm/ Premix 50 mls @ 100 mls/hr IV ONETIME ONE Stop: 10/23/18 16:28 Last Admin: 10/24/18 00:10 Dose: Not Given Lactated Ringer's (Ringers, Lactated) 1,000 mls @ 150 mls/hr IV ASDIRECTED [facility] Cefoxitin Sodium 2 gm/ Sodium (Chloride) 100 mls @ 200 mls/hr IV ONETIME ONE Stop: 10/23/18 16:28 Last Admin: 10/23/18 16:14 Dose: 200 mls/hr Acetaminophen (Ofirmev) Confirm Administered Dose 100 mls @ as directed IV .STK- MED ONE Stop: 10/23/18 19:22 Pantoprazole Sodium 80 mg/ (Sodium Chloride) 100 mls @ 10 mls/hr IV Q24H [facility] Last Admin: 10/23/18 23:49 Dose: 10 mls/hr Iopamidol (Isovue Multipack-370 (76%)) 100 ml IVPUSH ONETIME STA Stop: 10/23/18 18:16 Last Admin: 10/23/18 18:16 Dose: 100 ml Lidocaine (Xylocaine-Mpf 2%) Confirm Administered Dose 5 ml .ROUTE .STK-MED ONE Stop: 10/23/18 16:51 Midazolam HCl (Versed 1 Mg/Ml) Confirm Administered Dose 2 mg .ROUTE .STK-MED ONE Stop: 10/23/18 16:51 Naloxone HCl (Narcan) 0.1 mg IVPUSH ASDIRECTED PRN PRN Reason: Respiratory Depression Ondansetron HCl (Zofran) 4 mg IVPUSH ONETIME ONE Stop: 10/23/18 13:40 Last Admin: 10/23/18 13:48 Dose: 4 mg Ondansetron HCl (Zofran) Confirm Administered Dose 4 mg .ROUTE .STK-MED ONE Stop: 10/23/18 16:51 Pantoprazole Sodium (Protonix Iv) 80 mg IVPUSH .BOLUS ONE Stop: 10/23/18 13:37 Last Admin: 10/23/18 13:49 Dose: 80 mg Propofol (Diprivan 20 Ml) Confirm Administered Dose 200 mg .ROUTE .STK-MED ONE Stop: 10/23/18 16:51 Rocuronium Aroda (Zemuron) Confirm Administered Dose 100 mg .ROUTE .STK-MED ONE Stop: 10/23/18 16:51 - Exam Wound/Incisions: No Drainage. No: Erythema Quality Assessment: Supplemental Oxygen General: Alert, Oriented, Cooperative Neck: Supple, Trachea Midline Lungs: Normal Respiratory Effort, Crackles (to right base ), Wheezing Cardiovascular: Regular Rate, Regular Rhythm GI/Abdominal Exam: Soft, Non-Tender, No Distention, No Mass Extremities: Normal Inspection, Other (some clubbing of the fingers. ) Skin: Warm, Dry, Intact Psy/Mental Status: Alert, Normal Affect, Normal Mood - Problem List & Annotations (1) Smoker SNOMED Code(s): 06821182 Code(s): F17.200 - NICOTINE DEPENDENCE, UNSPECIFIED, UNCOMPLICATED Status: Acute Current Visit: Yes (2) Perforated ulcer SNOMED Code(s): 11617085 Code(s): K27.5 - CHRONIC OR UNSP PEPTIC ULCER, SITE UNSP, WITH PERFORATION Status: Acute Current Visit: Yes - Problem List Review Problem List Initiated/Reviewed/Updated: Yes - My Orders Last 24 Hours: Active Orders 24 hr Category Date Time Status Communication Order [RC] PER UNIT ROUTINE Care 10/25/18 09:27 Active Communication Order [RC] PER UNIT ROUTINE Care 10/25/18 09:29 Active RT Post Treatment Assessment [RC] Click to Edit Care 10/25/18 15:05 Inactive RT Post Treatment Assessment [RC] Click to Edit Care 10/25/18 15:07 Active RT Pre-Treatment Assessment [RC] Click to Edit Care 10/25/18 15:05 Inactive RT Pre-Treatment Assessment [RC] Click to Edit Care 10/25/18 15:07 Active CXR [Chest 1V Frontal] [CR] Routine Exams 10/25/18 15:11 Ordered Albuterol [Ventolin HFA] Med 10/25/18 15:06 Active 0 gm INH Q4H PRN Benzocaine/Cetylpyrd/Menthol [Cepacol Sore Throat] Med 10/25/18 10:10 Active 1 lozenge MUCMEM Q2HR PRN Dextromethorphan/guaiFENesin [Robitussin DM] Med 10/24/18 15:53 Active 5 ml PO Q4H PRN Enoxaparin [Lovenox] Med 10/25/18 15:15 Active 40 mg SUBCUT Q24H Pantoprazole [ProTONIX IV] Med 10/24/18 21:00 Active 40 mg IVPUSH BID Sodium Chloride 0.65% [Laura Nasal [place]] Med 10/25/18 10:13 Active 2 ml RAHEEM Q2H PRN cefOXitin [Mefoxin in Dextrose,Iso-Osm 1 GM/50 ML] 1 gm Med 10/24/18 15:30 Active Premix Bag 1 bag IV Q6H Medication Orders Albuterol (Ventolin Hfa) 0 gm INH Q4H PRN PRN Reason: Wheezing Benzocaine/Menthol (Cepacol Sore Throat) 1 lozenge MUCMEM Q2HR PRN PRN Reason: Sore Throat Last Admin: 10/25/18 15:58 Dose: 1 lozenge Admin: 10/25/18 11:08 Dose: 1 lozenge Enoxaparin Sodium (Lovenox) 40 mg SUBCUT Q24H [facility] Last Admin: 10/25/18 15:59 Dose: 40 mg Guaifenesin/Dextromethorphan (Robitussin Dm) 5 ml PO Q4H PRN PRN Reason: Cough Last Admin: 10/24/18 16:23 Dose: 5 ml Acetaminophen 1,000 mg/ Premix 100 mls @ 400 mls/hr IV Q6H PRN PRN Reason: Pain Last Admin: 10/25/18 00:21 Dose: 400 mls/hr Infusion: 10/24/18 05:54 Dose: 400 mls/hr Admin: 10/24/18 05:39 Dose: 400 mls/hr Lactated Ringer's (Ringers, Lactated) 1,000 mls @ 125 mls/hr IV ASDIRECTED [facility] Last Admin: 10/25/18 09:04 Dose: 125 mls/hr Infusion: 10/25/18 07:38 Dose: 125 mls/hr Admin: 10/24/18 23:38 Dose: 125 mls/hr Infusion: 10/24/18 22:14 Dose: 125 mls/hr Admin: 10/24/18 14:14 Dose: 125 mls/hr Infusion: 10/24/18 13:39 Dose: 125 mls/hr Admin: 10/24/18 05:39 Dose: 125 mls/hr Cefoxitin Sodium 1 gm/ Premix 50 mls @ 100 mls/hr IV Q6H [facility] Last Admin: 10/25/18 15:33 Dose: 100 mls/hr Infusion: 10/25/18 10:16 Dose: 100 mls/hr Admin: 10/25/18 09:46 Dose: 100 mls/hr Infusion: 10/25/18 04:14 Dose: 100 mls/hr Admin: 10/25/18 03:44 Dose: 100 mls/hr Infusion: 10/24/18 21:14 Dose: 100 mls/hr Admin: 10/24/18 20:44 Dose: 100 mls/hr Infusion: 10/24/18 16:06 Dose: 100 mls/hr Admin: 10/24/18 15:36 Dose: 100 mls/hr Morphine Sulfate (Morphine Buy Boat Operator 30 Mg In 30 Ml) 30 mg IV ASDIRECTED [facility]; Protocol Last Admin: 10/24/18 19:57 Dose: 30 mg Admin: 10/24/18 08:34 Dose: 30 mg Admin: 10/23/18 20:44 Dose: 30 mg Nicotine (Habitrol) 21 mg TRDERM DAILY [facility] Last Admin: 10/25/18 09:46 Dose: 21 mg Admin: 10/24/18 08:35 Dose: 21 mg Pantoprazole Sodium (Protonix Iv) 40 mg IVPUSH BID [facility] Last Admin: 10/25/18 09:46 Dose: 40 mg Admin: 10/24/18 20:43 Dose: 40 mg Sodium Chloride (Saline Flush) 10 ml FLUSH ASDIRECTED PRN PRN Reason: Keep Vein Open Last Admin: 10/23/18 13:49 Dose: 10 ml Sodium Chloride (Saline Flush) 2.5 ml FLUSH ASDIRECTED PRN PRN Reason: Keep Vein Open Last Admin: 10/23/18 13:48 Dose: 2.5 ml Sodium Chloride (Laura Nasal [place]) 2 ml RAHEEM Q2H PRN PRN Reason: Congestion - Plan Plan (Free Text/Narrative):: Neuro: No deficits. Patient's pain is well controlled. 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 CV: Normal heart rate. Blood pressure within normal range. Pulmonary: Life long smoker with likely undiagnosed COPD. Chest pain likely musculoskeletal. Did have some crackles in right base. CXR pending. -Encourage IS use. I showed patient how to use at bedside. Patient NEEDS TO BE OUT OF BED more often. Encourage sitting up in chair and walking. -Will review CXR. CXR on admission shows no signs of pneumonia. Likely has atelectasis from not being mobile enough. -Albuterol inhaler prn for wheezing GI: No bowel sounds. No flatus yet. NG output clear and minimal. Will clamp NG. If no bloating, abdominal pain, nausea or vomiting will pull in 5 hours. Even if the NG is removed stick to NPO with ice chips for the evening. Renal: UOP adequate. Heme: Hemoglobin now stable. No need for labs in am unless having signs of infection. ID: If he remains afebrile no need for further antibiotics. If CXR concerning for pneumonia will start IV zosyn. Px: Lovenox 40mg subq daily. SCDs and jenni hose are on. Extremities appear normal. IV PPI
[2018-10-25] MEDS: Albuterol 8 GM Inhaler INH PRN ×2 (16:41→21:10)
--- NOTE | 2018-10-25 16:46 | CR ---
EXAMINATION: Portable chest radiograph. HISTORY: Shortness of breath. FINDINGS: The trachea is midline. The cardiomediastinal silhouette is within normal limits. Trace bibasilar atelectasis and/or infiltrate. No significant pleural effusion, no pneumothorax. An NG tube is noted with tip projecting below the diaphragm. Osseous structures appear unremarkable. There is postoperative air under the diaphragm. IMPRESSION: 1. Mild bibasilar atelectasis and/or infiltrate. 2. Free air under the diaphragm, likely postoperative in nature.
[2018-10-25] MEDS: Morphine PF 30 MG/30 ML PCA Vial IV SCH (17:55)
[2018-10-25] MEDS ORDERED: Ondansetron 4 MG/2 ML SDV IVPUSH PRN (18:47)
[2018-10-25] MEDS ORDERED: Scopolamine 1.5 MG Transdermal Patch TRDERM PRN (18:47)
[2018-10-26] MEDS: Lactated Ringers 1,000 ML IV SCH ×3 (02:29→21:42)
[2018-10-26] MEDS: cefOXitin 1 GM in Premix Bag 1 BAG IV SCH ×4 (02:32→21:42)
[2018-10-26] MEDS: Pantoprazole 40 MG Vial IVPUSH SCH ×2 (10:00→21:42)
[2018-10-26] MEDS: Nicotine 21 MG/24 Hr Patch TRDERM SCH (10:01)
[2018-10-26] MEDS: Albuterol 8 GM Inhaler INH PRN ×2 (10:41→18:39)
[2018-10-26] MEDS: Sodium Chloride 0.65% Nasal Spray 45 ML Bottle NAS PRN ×3 (10:50→18:31)
[2018-10-26] MEDS: Benzocaine/Cetylpyridinium/Menthol Lozenge MUCMEM PRN (10:50)
[2018-10-26] MEDS: Morphine PF 30 MG/30 ML PCA Vial IV SCH (10:51)
[2018-10-26] MEDS ORDERED: Bisacodyl 10 MG Supp RECTAL ONE (13:47)
--- NOTE | 2018-10-26 13:54 | PCM.SURGPN ---
- General Info Date of Service: 10/26/18 POD#: 3 Post-Op Diagnosis: Perforated peptic ulcer disease Functional Status: Reports: Pain Controlled, Ambulating (minimally), Urinating, Incentive Spirometry (infrequently) - Review of Systems General: Reports: Fever, Weakness HEENT: Reports: No Symptoms Pulmonary: Reports: Shortness of Breath, Cough. Denies: Sputum, Hemoptysis Cardiovascular: Denies: Chest Pain Gastrointestinal: Reports: Abdominal Pain, Constipation, Decreased Appetite. Denies: Diarrhea, Difficulty Swallowing, Flatus, Hematochezia, Melena, Nausea, Vomiting Genitourinary: Denies: Dysuria, Frequency, Burning, Pain Musculoskeletal: Denies: Neck Pain, Shoulder Pain Skin: Denies: Cyanosis, Jaundice Neurological: Denies: Confusion, Dizziness, Headache Psychiatric: Denies: Confusion, Depression - Patient Data Vitals - Most Recent: Last Vital Signs Temp 98.7 F 10/26/18 11:00 Pulse 69 10/26/18 11:00 Resp 16 10/26/18 11:00 BP 132/70 10/26/18 07:57 Pulse Ox 95 10/26/18 11:00 Weight - Most Recent: 175 lb 4.8 oz I&O - Last 24 Hours: Intake & Output 10/26/18 10/26/18 10/26/18 03:59 11:59 19:59 Intake Total 1297 1149 Output Total 510 Balance 1297 639 Med Orders - Current: Current Medications Albuterol (Ventolin Hfa) 0 gm INH Q4H PRN PRN Reason: Wheezing Last Admin: 10/26/18 10:41 Dose: 1 puff Benzocaine/Menthol (Cepacol Sore Throat) 1 lozenge MUCMEM Q2HR PRN PRN Reason: Sore Throat Last Admin: 10/26/18 10:50 Dose: 1 lozenge Bisacodyl (Dulcolax) 10 mg RECTAL ONETIME ONE Stop: 10/26/18 13:48 Enoxaparin Sodium (Lovenox) 40 mg SUBCUT Q24H [facility] Last Admin: 10/25/18 15:59 Dose: 40 mg Guaifenesin/Dextromethorphan (Robitussin Dm) 5 ml PO Q4H PRN PRN Reason: Cough Last Admin: 10/24/18 16:23 Dose: 5 ml Acetaminophen 1,000 mg/ Premix 100 mls @ 400 mls/hr IV Q6H PRN PRN Reason: Pain Last Admin: 10/25/18 00:21 Dose: 400 mls/hr Lactated Ringer's (Ringers, Lactated) 1,000 mls @ 125 mls/hr IV ASDIRECTED [facility] Last Admin: 10/26/18 12:19 Dose: 125 mls/hr Cefoxitin Sodium 1 gm/ Premix 50 mls @ 100 mls/hr IV Q6H [facility] Last Admin: 10/26/18 10:00 Dose: 100 mls/hr Morphine Sulfate (Morphine Supplier Development Manager 30 Mg In 30 Ml) 30 mg IV ASDIRECTED [facility]; Protocol Last Admin: 10/26/18 10:51 Dose: 30 mg Nicotine (Habitrol) 21 mg TRDERM DAILY [facility] Last Admin: 10/26/18 10:01 Dose: 21 mg Ondansetron HCl (Zofran) 4 mg IVPUSH Q4H PRN PRN Reason: Nausea Last Admin: 10/26/18 10:48 Dose: 4 mg Pantoprazole Sodium (Protonix Iv) 40 mg IVPUSH BID [facility] Last Admin: 10/26/18 10:00 Dose: 40 mg Scopolamine (Transderm-Scop) 1.5 mg TRDERM Q72H PRN PRN Reason: Nausea Sodium Chloride (Saline Flush) 10 ml FLUSH ASDIRECTED PRN PRN Reason: Keep Vein Open Last Admin: 10/23/18 13:49 Dose: 10 ml Sodium Chloride (Saline Flush) 2.5 ml FLUSH ASDIRECTED PRN PRN Reason: Keep Vein Open Last Admin: 10/23/18 13:48 Dose: 2.5 ml Sodium Chloride ([place] Nasal [place]) 2 ml RAHEEM Q2H PRN PRN Reason: Congestion Last Admin: 10/26/18 10:50 Dose: 2 sprays Discontinued Medications Albuterol (Proventil Neb Soln) 2.5 mg NEB ONETIME PRN PRN Reason: Wheezing Albuterol/Ipratropium (Duoneb 3.0-0.5 Mg/3 Ml) 3 ml NEB ONETIME ONE Stop: 10/23/18 13:36 Last Admin: 10/23/18 13:46 Dose: 3 ml Atropine Sulfate (Atropine 1 Mg/Ml) 1 mg IVPUSH ASDIRECTED PRN PRN Reason: ACLS Guidelines Atropine Sulfate (Atropine 0.1 Mg/Ml) 0.5 mg IVPUSH ASDIRECTED PRN PRN Reason: Hypo-Perfusion Dextrose/Water (Dextrose 50% In Water) 50 ml IVPUSH ASDIRECTED PRN PRN Reason: Hypoglycemia Epinephrine HCl (Adrenalin) 1 mg IVPUSH NOW ONE Stop: 10/23/18 20:21 Last Admin: 10/24/18 00:07 Dose: Not Given Fentanyl (Sublimaze) Confirm Administered Dose 250 mcg .ROUTE .STK-MED ONE Stop: 10/23/18 16:51 Fentanyl (Sublimaze) 50 - 100 mcg IVPUSH Q5M PRN PRN Reason: Pain Hydromorphone HCl (Dilaudid) 1 mg IVPUSH ONETIME ONE Stop: 10/23/18 13:37 Last Admin: 10/23/18 13:48 Dose: 1 mg Hydromorphone HCl (Dilaudid) 1 mg IVPUSH ONETIME ONE Stop: 10/23/18 14:35 Last Admin: 10/23/18 14:46 Dose: 1 mg Hydromorphone HCl (Dilaudid) Confirm Administered Dose 2 mg .ROUTE .STK-MED ONE Stop: 10/23/18 18:18 Hydromorphone HCl (Dilaudid) Confirm Administered Dose 2 mg .ROUTE .STK-MED ONE Stop: 10/23/18 19:20 Sodium Chloride (Normal Saline) 1,000 mls @ 999 mls/hr IV STAT ONE Stop: 10/23/18 14:36 Last Infusion: 10/23/18 14:33 Dose: 999 mls/hr Lactated Ringer's (Ringers, Lactated) 1,000 mls @ 150 mls/hr IV ASDIRECTED [facility] Last Admin: 10/23/18 23:11 Dose: 150 mls/hr Cefoxitin Sodium 2 gm/ Premix 50 mls @ 100 mls/hr IV ONETIME ONE Stop: 10/23/18 16:28 Last Admin: 10/24/18 00:10 Dose: Not Given Lactated Ringer's (Ringers, Lactated) 1,000 mls @ 150 mls/hr IV ASDIRECTED [facility] Cefoxitin Sodium 2 gm/ Sodium (Chloride) 100 mls @ 200 mls/hr IV ONETIME ONE Stop: 10/23/18 16:28 Last Admin: 10/23/18 16:14 Dose: 200 mls/hr Acetaminophen (Ofirmev) Confirm Administered Dose 100 mls @ as directed IV .STK- MED ONE Stop: 10/23/18 19:22 Pantoprazole Sodium 80 mg/ (Sodium Chloride) 100 mls @ 10 mls/hr IV Q24H [facility] Last Admin: 10/23/18 23:49 Dose: 10 mls/hr Iopamidol (Isovue Multipack-370 (76%)) 100 ml IVPUSH ONETIME STA Stop: 10/23/18 18:16 Last Admin: 10/23/18 18:16 Dose: 100 ml Lidocaine (Xylocaine-Mpf 2%) Confirm Administered Dose 5 ml .ROUTE .STK-MED ONE Stop: 10/23/18 16:51 Midazolam HCl (Versed 1 Mg/Ml) Confirm Administered Dose 2 mg .ROUTE .STK-MED ONE Stop: 10/23/18 16:51 Naloxone HCl (Narcan) 0.1 mg IVPUSH ASDIRECTED PRN PRN Reason: Respiratory Depression Ondansetron HCl (Zofran) 4 mg IVPUSH ONETIME ONE Stop: 10/23/18 13:40 Last Admin: 10/23/18 13:48 Dose: 4 mg Ondansetron HCl (Zofran) Confirm Administered Dose 4 mg .ROUTE .STK-MED ONE Stop: 10/23/18 16:51 Pantoprazole Sodium (Protonix Iv) 80 mg IVPUSH .BOLUS ONE Stop: 10/23/18 13:37 Last Admin: 10/23/18 13:49 Dose: 80 mg Propofol (Diprivan 20 Ml) Confirm Administered Dose 200 mg .ROUTE .STK-MED ONE Stop: 10/23/18 16:51 Rocuronium [place] (Zemuron) Confirm Administered Dose 100 mg .ROUTE .STK-MED ONE Stop: 10/23/18 16:51 - Exam Wound/Incisions: Healing Well, No Drainage. No: Erythema Quality Assessment: DVT Prophylaxis. No: Skin Breakdown General: Alert, Oriented, Cooperative, No Acute Distress HEENT: Pupils Equal, Pupils Reactive. No: Scleral Icterus Neck: Supple Lungs: Decreased Breath Sounds, Rhonchi. No: Wheezing Cardiovascular: Regular Rate, Regular Rhythm, No Murmurs GI/Abdominal Exam: Soft, Non-Tender, Distended, Abnormal Bowel Sounds ( hypoactive). No: Guarding, Rigid, Rebound Extremities: Normal Inspection Skin: Warm, Dry, Intact Neurological: No New Focal Deficit Psy/Mental Status: Alert - Problem List & Annotations (1) COPD (chronic obstructive pulmonary disease) SNOMED Code(s): 98143143 Code(s): J44.9 - CHRONIC OBSTRUCTIVE PULMONARY DISEASE, UNSPECIFIED Status : Acute Priority: Medium Current Visit: Yes Qualifiers: Chronic bronchitis type: simple (2) Atelectasis of both lungs SNOMED Code(s): 14131257 Code(s): J98.11 - ATELECTASIS Status: Acute Priority: Medium Current Visit: Yes (3) Perforated ulcer SNOMED Code(s): 25216500 Code(s): K27.5 - CHRONIC OR UNSP PEPTIC ULCER, SITE UNSP, WITH PERFORATION Status: Acute Priority: High Current Visit: Yes - Problem List Review Problem List Initiated/Reviewed/Updated: Yes - My Orders Last 24 Hours: Active Orders 24 hr Category Date Time Status Ambulate [RC] ASDIRECTED Care 10/26/18 13:46 Ordered Communication Order [RC] PER UNIT ROUTINE Care 10/25/18 19:42 Active Communication Order [RC] PER UNIT ROUTINE Care 10/25/18 19:49 Active RT Incentive Spirometry [RC] Q1HWA Care 10/26/18 13:47 Ordered RT Post Treatment Assessment [RC] Click to Edit Care 10/25/18 15:05 Inactive RT Post Treatment Assessment [RC] Click to Edit Care 10/25/18 15:07 Active RT Pre-Treatment Assessment [RC] Click to Edit Care 10/25/18 15:05 Inactive RT Pre-Treatment Assessment [RC] Click to Edit Care 10/25/18 15:07 Active Clear Liquid Diet [DIET] Diet 10/26/18 Lunch Ordered Albuterol [Ventolin HFA] Med 10/25/18 15:06 Active 0 gm INH Q4H PRN Bisacodyl [Dulcolax] Med 10/26/18 13:47 Once 10 mg RECTAL ONETIME ONE Enoxaparin [Lovenox] Med 10/25/18 15:15 Active 40 mg SUBCUT Q24H Ondansetron [Zofran] Med 10/25/18 18:47 Active 4 mg IVPUSH Q4H PRN Scopolamine [Transderm-Scop] Med 10/25/18 18:47 Active 1.5 mg TRDERM Q72H PRN Medication Orders Albuterol (Ventolin Hfa) 0 gm INH Q4H PRN PRN Reason: Wheezing Last Admin: 10/26/18 10:41 Dose: 1 puff Admin: 10/25/18 21:10 Dose: 1 puff Admin: 10/25/18 16:41 Dose: 1 puff Benzocaine/Menthol (Cepacol Sore Throat) 1 lozenge MUCMEM Q2HR PRN PRN Reason: Sore Throat Last Admin: 10/26/18 10:50 Dose: 1 lozenge Admin: 10/25/18 21:15 Dose: 1 lozenge Admin: 10/25/18 15:58 Dose: 1 lozenge Admin: 10/25/18 11:08 Dose: 1 lozenge Bisacodyl (Dulcolax) 10 mg RECTAL ONETIME ONE Stop: 10/26/18 13:48 Enoxaparin Sodium (Lovenox) 40 mg SUBCUT Q24H [facility] Last Admin: 10/25/18 15:59 Dose: 40 mg Guaifenesin/Dextromethorphan (Robitussin Dm) 5 ml PO Q4H PRN PRN Reason: Cough Last Admin: 10/24/18 16:23 Dose: 5 ml Acetaminophen 1,000 mg/ Premix 100 mls @ 400 mls/hr IV Q6H PRN PRN Reason: Pain Last Admin: 10/25/18 00:21 Dose: 400 mls/hr Infusion: 10/24/18 05:54 Dose: 400 mls/hr Admin: 10/24/18 05:39 Dose: 400 mls/hr Lactated Ringer's (Ringers, Lactated) 1,000 mls @ 125 mls/hr IV ASDIRECTED [facility] Last Admin: 10/26/18 12:19 Dose: 125 mls/hr Infusion: 10/26/18 10:29 Dose: 125 mls/hr Admin: 10/26/18 02:29 Dose: 125 mls/hr Infusion: 10/26/18 02:25 Dose: 125 mls/hr Admin: 10/25/18 18:25 Dose: 125 mls/hr Infusion: 10/25/18 17:04 Dose: 125 mls/hr Admin: 10/25/18 09:04 Dose: 125 mls/hr Infusion: 10/25/18 07:38 Dose: 125 mls/hr Admin: 10/24/18 23:38 Dose: 125 mls/hr Infusion: 10/24/18 22:14 Dose: 125 mls/hr Admin: 10/24/18 14:14 Dose: 125 mls/hr Infusion: 10/24/18 13:39 Dose: 125 mls/hr Admin: 10/24/18 05:39 Dose: 125 mls/hr Cefoxitin Sodium 1 gm/ Premix 50 mls @ 100 mls/hr IV Q6H [facility] Last Admin: 10/26/18 10:00 Dose: 100 mls/hr Infusion: 10/26/18 03:02 Dose: 100 mls/hr Admin: 10/26/18 02:32 Dose: 100 mls/hr Infusion: 10/25/18 21:29 Dose: 100 mls/hr Admin: 10/25/18 20:59 Dose: 100 mls/hr Infusion: 10/25/18 16:03 Dose: 100 mls/hr Admin: 10/25/18 15:33 Dose: 100 mls/hr Infusion: 10/25/18 10:16 Dose: 100 mls/hr Admin: 10/25/18 09:46 Dose: 100 mls/hr Infusion: 10/25/18 04:14 Dose: 100 mls/hr Admin: 10/25/18 03:44 Dose: 100 mls/hr Infusion: 10/24/18 21:14 Dose: 100 mls/hr Admin: 10/24/18 20:44 Dose: 100 mls/hr Infusion: 10/24/18 16:06 Dose: 100 mls/hr Admin: 10/24/18 15:36 Dose: 100 mls/hr Morphine Sulfate (Morphine Supplier Development Manager 30 Mg In 30 Ml) 30 mg IV ASDIRECTED [facility]; Protocol Last Admin: 10/26/18 10:51 Dose: 30 mg Admin: 10/25/18 17:55 Dose: 30 mg Admin: 10/24/18 19:57 Dose: 30 mg Admin: 10/24/18 08:34 Dose: 30 mg Admin: 10/23/18 20:44 Dose: 30 mg Nicotine (Habitrol) 21 mg TRDERM DAILY [facility] Last Admin: 10/26/18 10:01 Dose: 21 mg Admin: 10/25/18 09:46 Dose: 21 mg Admin: 10/24/18 08:35 Dose: 21 mg Ondansetron HCl (Zofran) 4 mg IVPUSH Q4H PRN PRN Reason: Nausea Last Admin: 10/26/18 10:48 Dose: 4 mg Pantoprazole Sodium (Protonix Iv) 40 mg IVPUSH BID [facility] Last Admin: 10/26/18 10:00 Dose: 40 mg Admin: 10/25/18 21:01 Dose: 40 mg Admin: 10/25/18 09:46 Dose: 40 mg Admin: 10/24/18 20:43 Dose: 40 mg Scopolamine (Transderm-Scop) 1.5 mg TRDERM Q72H PRN PRN Reason: Nausea Sodium Chloride (Saline Flush) 10 ml FLUSH ASDIRECTED PRN PRN Reason: Keep Vein Open Last Admin: 10/23/18 13:49 Dose: 10 ml Sodium Chloride (Saline Flush) 2.5 ml FLUSH ASDIRECTED PRN PRN Reason: Keep Vein Open Last Admin: 10/23/18 13:48 Dose: 2.5 ml Sodium Chloride ([place] Nasal [place]) 2 ml RAHEEM Q2H PRN PRN Reason: Congestion Last Admin: 10/26/18 10:50 Dose: 2 sprays - Assessment Assessment (Free Text/Narrative):: Patient remains hemodynamically stable. Low grade fever as he is not out of bed nor using his incentive spirometry enough. - Plan Plan (Free Text/Narrative):: Increase activity. 12 walks daily. IS q1h while awake. Clear liquids. Dulcolax suppository.
[2018-10-26] MEDS: Enoxaparin 40 MG/0.4 ML Syringe SUBCUT SCH (15:20)
[2018-10-27] MEDS: cefOXitin 1 GM in Premix Bag 1 BAG IV SCH ×2 (05:05→09:29)
[2018-10-27] MEDS: Lactated Ringers 1,000 ML IV SCH (05:07)
[2018-10-27] MEDS: Pantoprazole 40 MG Vial IVPUSH SCH (09:27)
[2018-10-27] MEDS: Sodium Chloride 0.65% Nasal Spray 45 ML Bottle NAS PRN ×2 (09:29→14:03)
[2018-10-27] MEDS: Nicotine 21 MG/24 Hr Patch TRDERM SCH (09:32)
[2018-10-27] MEDS: Albuterol 8 GM Inhaler INH PRN ×2 (09:41→14:03)
[2018-10-27] MEDS ORDERED: Morphine 4 MG/ML Syringe IVPUSH PRN (09:48)
--- NOTE | 2018-10-27 09:55 | PCM.SURGPN ---
- General Info Date of Service: 10/27/18 Date of Surgery/Procedure: 10/30/18 POD#: 4 Functional Status: Reports: Pain Controlled, Tolerating Diet, Ambulating, Urinating - Review of Systems General: Reports: No Symptoms HEENT: Reports: No Symptoms Pulmonary: Reports: No Symptoms Cardiovascular: Reports: No Symptoms Gastrointestinal: Reports: No Symptoms, [place] Musculoskeletal: Reports: No Symptoms - Patient Data Vitals - Most Recent: Last Vital Signs Temp 36.9 C 10/27/18 07:15 Pulse 64 10/27/18 07:15 Resp 16 10/27/18 07:15 BP 121/58 L 10/27/18 07:15 Pulse Ox 93 L 10/27/18 07:15 Weight - Most Recent: 80.966 kg I&O - Last 24 Hours: Intake & Output 10/26/18 10/27/18 10/27/18 22:59 06:59 14:59 Intake Total 502 650 Output Total 562 460 Balance -60 190 Lab Results Last 24 Hrs: Laboratory Results - last 24 hr 10/23/18 Range/Units 17:27 Crossmatch See Detail Med Orders - Current: Current Medications Albuterol (Ventolin Hfa) 0 gm INH Q4H PRN PRN Reason: Wheezing Last Admin: 10/27/18 09:41 Dose: 1 puff Benzocaine/Menthol (Cepacol Sore Throat) 1 lozenge MUCMEM Q2HR PRN PRN Reason: Sore Throat Last Admin: 10/26/18 10:50 Dose: 1 lozenge Enoxaparin Sodium (Lovenox) 40 mg SUBCUT Q24H [facility] Last Admin: 10/26/18 15:20 Dose: 40 mg Ketorolac Tromethamine (Toradol) 10 mg PO Q6H [facility] Stop: 11/01/18 10:01 Morphine Sulfate (Morphine) 4 mg IVPUSH Q2H PRN PRN Reason: Pain Multivitamins/Minerals/Vitamin C (Tab-A-Margarita) 1 tab PO DAILY [facility] Nicotine (Habitrol) 21 mg TRDERM DAILY [facility] Last Admin: 10/27/18 09:32 Dose: 21 mg Ondansetron HCl (Zofran) 4 mg IVPUSH Q4H PRN PRN Reason: Nausea Last Admin: 10/26/18 10:48 Dose: 4 mg Oxycodone/Acetaminophen (Percocet 325-5 Mg) 2 tab PO Q4H PRN PRN Reason: Abdominal Pain Pantoprazole Sodium (Protonix) 40 mg PO BIDAC [facility] Scopolamine (Transderm-Scop) 1.5 mg TRDERM Q72H PRN PRN Reason: Nausea Sodium Chloride (Saline Flush) 10 ml FLUSH ASDIRECTED PRN PRN Reason: Keep Vein Open Last Admin: 10/23/18 13:49 Dose: 10 ml Sodium Chloride (Saline Flush) 2.5 ml FLUSH ASDIRECTED PRN PRN Reason: Keep Vein Open Last Admin: 10/23/18 13:48 Dose: 2.5 ml Sodium Chloride ([place] Nasal [place]) 2 ml RAHEEM Q2H PRN PRN Reason: Congestion Last Admin: 10/27/18 09:29 Dose: 1 sprays Discontinued Medications Albuterol (Proventil Neb Soln) 2.5 mg NEB ONETIME PRN PRN Reason: Wheezing Albuterol/Ipratropium (Duoneb 3.0-0.5 Mg/3 Ml) 3 ml NEB ONETIME ONE Stop: 10/23/18 13:36 Last Admin: 10/23/18 13:46 Dose: 3 ml Atropine Sulfate (Atropine 1 Mg/Ml) 1 mg IVPUSH ASDIRECTED PRN PRN Reason: ACLS Guidelines Atropine Sulfate (Atropine 0.1 Mg/Ml) 0.5 mg IVPUSH ASDIRECTED PRN PRN Reason: Hypo-Perfusion Bisacodyl (Dulcolax) 10 mg RECTAL ONETIME ONE Stop: 10/26/18 13:48 Last Admin: 10/26/18 15:21 Dose: 10 mg Dextrose/Water (Dextrose 50% In Water) 50 ml IVPUSH ASDIRECTED PRN PRN Reason: Hypoglycemia Epinephrine HCl (Adrenalin) 1 mg IVPUSH NOW ONE Stop: 10/23/18 20:21 Last Admin: 10/24/18 00:07 Dose: Not Given Fentanyl (Sublimaze) Confirm Administered Dose 250 mcg .ROUTE .STK-MED ONE Stop: 10/23/18 16:51 Fentanyl (Sublimaze) 50 - 100 mcg IVPUSH Q5M PRN PRN Reason: Pain Guaifenesin/Dextromethorphan (Robitussin Dm) 5 ml PO Q4H PRN PRN Reason: Cough Last Admin: 10/24/18 16:23 Dose: 5 ml Hydromorphone HCl (Dilaudid) 1 mg IVPUSH ONETIME ONE Stop: 10/23/18 13:37 Last Admin: 10/23/18 13:48 Dose: 1 mg Hydromorphone HCl (Dilaudid) 1 mg IVPUSH ONETIME ONE Stop: 10/23/18 14:35 Last Admin: 10/23/18 14:46 Dose: 1 mg Hydromorphone HCl (Dilaudid) Confirm Administered Dose 2 mg .ROUTE .STK-MED ONE Stop: 10/23/18 18:18 Hydromorphone HCl (Dilaudid) Confirm Administered Dose 2 mg .ROUTE .STK-MED ONE Stop: 10/23/18 19:20 Sodium Chloride (Normal Saline) 1,000 mls @ 999 mls/hr IV STAT ONE Stop: 10/23/18 14:36 Last Infusion: 10/23/18 14:33 Dose: 999 mls/hr Lactated Ringer's (Ringers, Lactated) 1,000 mls @ 150 mls/hr IV ASDIRECTED [facility] Last Admin: 10/23/18 23:11 Dose: 150 mls/hr Cefoxitin Sodium 2 gm/ Premix 50 mls @ 100 mls/hr IV ONETIME ONE Stop: 10/23/18 16:28 Last Admin: 10/24/18 00:10 Dose: Not Given Lactated Ringer's (Ringers, Lactated) 1,000 mls @ 150 mls/hr IV ASDIRECTED [facility] Cefoxitin Sodium 2 gm/ Sodium (Chloride) 100 mls @ 200 mls/hr IV ONETIME ONE Stop: 10/23/18 16:28 Last Admin: 10/23/18 16:14 Dose: 200 mls/hr Acetaminophen (Ofirmev) Confirm Administered Dose 100 mls @ as directed IV .STK- MED ONE Stop: 10/23/18 19:22 Pantoprazole Sodium 80 mg/ (Sodium Chloride) 100 mls @ 10 mls/hr IV Q24H [facility] Last Admin: 10/23/18 23:49 Dose: 10 mls/hr Acetaminophen 1,000 mg/ Premix 100 mls @ 400 mls/hr IV Q6H PRN PRN Reason: Pain Last Admin: 10/25/18 00:21 Dose: 400 mls/hr Lactated Ringer's (Ringers, Lactated) 1,000 mls @ 125 mls/hr IV ASDIRECTED [facility] Last Admin: 10/27/18 05:07 Dose: 125 mls/hr Cefoxitin Sodium 1 gm/ Premix 50 mls @ 100 mls/hr IV Q6H [facility] Last Admin: 10/27/18 09:29 Dose: 100 mls/hr Iopamidol (Isovue Multipack-370 (76%)) 100 ml IVPUSH ONETIME STA Stop: 10/23/18 18:16 Last Admin: 10/23/18 18:16 Dose: 100 ml Lidocaine (Xylocaine-Mpf 2%) Confirm Administered Dose 5 ml .ROUTE .STK-MED ONE Stop: 10/23/18 16:51 Midazolam HCl (Versed 1 Mg/Ml) Confirm Administered Dose 2 mg .ROUTE .STK-MED ONE Stop: 10/23/18 16:51 Morphine Sulfate (Morphine [place] [employer] 30 Mg In 30 Ml) 30 mg IV ASDIRECTED [facility]; Protocol Last Admin: 10/26/18 10:51 Dose: 30 mg Naloxone HCl (Narcan) 0.1 mg IVPUSH ASDIRECTED PRN PRN Reason: Respiratory Depression Ondansetron HCl (Zofran) 4 mg IVPUSH ONETIME ONE Stop: 10/23/18 13:40 Last Admin: 10/23/18 13:48 Dose: 4 mg Ondansetron HCl (Zofran) Confirm Administered Dose 4 mg .ROUTE .STK-MED ONE Stop: 10/23/18 16:51 Pantoprazole Sodium (Protonix Iv) 80 mg IVPUSH .BOLUS ONE Stop: 10/23/18 13:37 Last Admin: 10/23/18 13:49 Dose: 80 mg Pantoprazole Sodium (Protonix Iv) 40 mg IVPUSH BID [facility] Last Admin: 10/27/18 09:27 Dose: 40 mg Propofol (Diprivan 20 Ml) Confirm Administered Dose 200 mg .ROUTE .STK-MED ONE Stop: 10/23/18 16:51 Rocuronium [place] (Zemuron) Confirm Administered Dose 100 mg .ROUTE .STK-MED ONE Stop: 10/23/18 16:51 - Exam Wound/Incisions: Healing Well General: Alert, Oriented, Cooperative HEENT: Pupils Equal Lungs: Clear to Auscultation, Normal Respiratory Effort Cardiovascular: Regular Rate, Regular Rhythm GI/Abdominal Exam: Normal Bowel Sounds, Soft, Non-Tender, No Distention, No Mass Extremities: Normal Inspection Skin: Warm, Dry, Intact Neurological: No New Focal Deficit Psy/Mental Status: Alert, Normal Affect, Normal Mood - Problem List & Annotations (1) Smoker SNOMED Code(s): 16827133 Code(s): F17.200 - NICOTINE DEPENDENCE, UNSPECIFIED, UNCOMPLICATED Status: Acute Current Visit: Yes (2) Perforated ulcer SNOMED Code(s): 31594448 Code(s): K27.5 - CHRONIC OR UNSP PEPTIC ULCER, SITE UNSP, WITH PERFORATION Status: Acute Priority: High Current Visit: Yes - Problem List Review Problem List Initiated/Reviewed/Updated: Yes - My Orders Last 24 Hours: Active Orders 24 hr Category Date Time Status Ambulate [RC] ASDIRECTED Care 10/26/18 13:46 Active RT Incentive Spirometry [RC] Q1HWA Care 10/26/18 13:47 Active Regular Diet [DIET] Diet 10/27/18 Lunch Ordered Acetaminophen/oxyCODONE [Percocet 325-5 MG] Med 10/27/18 09:47 Ordered 2 tab PO Q4H PRN Ketorolac [Toradol] Med 10/27/18 10:00 Ordered 10 mg PO Q6H Morphine Med 10/27/18 09:48 Ordered 4 mg IVPUSH Q2H PRN Multivitamins [Tab-A-Margarita] Med 10/27/18 10:00 Ordered 1 tab PO DAILY Pantoprazole [ProTONIX] Med 10/27/18 17:00 Ordered 40 mg PO BIDAC Medication Orders Albuterol (Ventolin Hfa) 0 gm INH Q4H PRN PRN Reason: Wheezing Last Admin: 10/27/18 09:41 Dose: 1 puff Admin: 10/26/18 18:39 Dose: 1 puff Admin: 10/26/18 10:41 Dose: 1 puff Admin: 10/25/18 21:10 Dose: 1 puff Admin: 10/25/18 16:41 Dose: 1 puff Benzocaine/Menthol (Cepacol Sore Throat) 1 lozenge MUCMEM Q2HR PRN PRN Reason: Sore Throat Last Admin: 10/26/18 10:50 Dose: 1 lozenge Admin: 10/25/18 21:15 Dose: 1 lozenge Admin: 10/25/18 15:58 Dose: 1 lozenge Admin: 10/25/18 11:08 Dose: 1 lozenge Enoxaparin Sodium (Lovenox) 40 mg SUBCUT Q24H [facility] Last Admin: 10/26/18 15:20 Dose: 40 mg Admin: 10/25/18 15:59 Dose: 40 mg Ketorolac Tromethamine (Toradol) 10 mg PO Q6H [facility] Stop: 11/01/18 10:01 Morphine Sulfate (Morphine) 4 mg IVPUSH Q2H PRN PRN Reason: Pain Multivitamins/Minerals/Vitamin C (Tab-A-Margarita) 1 tab PO DAILY [facility] Nicotine (Habitrol) 21 mg TRDERM DAILY [facility] Last Admin: 10/27/18 09:32 Dose: 21 mg Admin: 10/26/18 10:01 Dose: 21 mg Admin: 10/25/18 09:46 Dose: 21 mg Admin: 10/24/18 08:35 Dose: 21 mg Ondansetron HCl (Zofran) 4 mg IVPUSH Q4H PRN PRN Reason: Nausea Last Admin: 10/26/18 10:48 Dose: 4 mg Oxycodone/Acetaminophen (Percocet 325-5 Mg) 2 tab PO Q4H PRN PRN Reason: Abdominal Pain Pantoprazole Sodium (Protonix) 40 mg PO BIDAC [facility] Scopolamine (Transderm-Scop) 1.5 mg TRDERM Q72H PRN PRN Reason: Nausea Sodium Chloride (Saline Flush) 10 ml FLUSH ASDIRECTED PRN PRN Reason: Keep Vein Open Last Admin: 10/23/18 13:49 Dose: 10 ml Sodium Chloride (Saline Flush) 2.5 ml FLUSH ASDIRECTED PRN PRN Reason: Keep Vein Open Last Admin: 10/23/18 13:48 Dose: 2.5 ml Sodium Chloride ([place] Nasal [place]) 2 ml RAHEEM Q2H PRN PRN Reason: Congestion Last Admin: 10/27/18 09:29 Dose: 1 sprays Admin: 10/26/18 18:31 Dose: 2 sprays Admin: 10/26/18 15:23 Dose: 2 sprays Admin: 10/26/18 10:50 Dose: 2 sprays - Plan Plan (Free Text/Narrative):: -Pain: D/C [employer]. Prn IV Morphine for severe pain. Prn percocet. Scheduled toradol -CV: Stable. -Pulmonary: Continue to encourage OOB activity and IS use. Lungs sound clear this morning -GI: regular diet today. Will add multivitamin as well. After BM yesterday has been passing gas. -Renal: D/C IVF. UOP adequate. -ID: No need for antibiotics. Afebrile. -Px: Continue lovenox. Switch to pantoprazole 40mg BID. -D/C: Potentially home tomorrow if tolerating diet and pain controlled.
[2018-10-27] MEDS: Multivitamin Tab PO SCH (10:26)
[2018-10-27] MEDS: Ketorolac 10 MG Tab PO SCH ×3 (10:26→21:30)
[2018-10-27] MEDS: Acetaminophen/oxyCODONE 325-5 MG Tab PO PRN ×2 (12:32→16:35)
[2018-10-27] MEDS: Enoxaparin 40 MG/0.4 ML Syringe SUBCUT SCH (15:35)
[2018-10-27] MEDS: Pantoprazole 40 MG Tab.CR PO SCH (16:44)
[2018-10-28] MEDS: Acetaminophen/oxyCODONE 325-5 MG Tab PO PRN ×2 (00:03→09:10)
[2018-10-28] MEDS: Ketorolac 10 MG Tab PO SCH ×2 (04:06→10:13)
[2018-10-28] MEDS: Pantoprazole 40 MG Tab.CR PO SCH (06:58)
--- NOTE | 2018-10-28 08:05 | PCM.DCSUM1 ---
Discharge Summary - Hospital Course Free Text/Narrative:: Patient is a 53 year old male who presented with a perforated gastric ulcer. He was taken to the OR for exploratory laparotomy. He underwent a luis patch and a drain was placed. He was admitted to the floor. He was kept npo with 24 hours of IV antibiotics. He stayed NPO for 48 hours. He was then given a dulcolax suppository with a BM afterwards. He then started passing gas and had return of bowel sounds. He was started on clears. He tolerated this well. He had a CXR on POD #1 given some pleuritic chest pain. He had atelectasis. He was made to get out of bed and walk around. His pain resolved. He likely has undiagnosed COPD. His diet was advanced POD #4 to regular. This was well tolerated. His drain had minimal ouput monday but had increased serous drainage on POD #4. He had continued serous drainage on POD #5. Given this was serous, I pulled the drain. A dressing was placed over the top. His incision appears well healing and he is doing well. Will d/c home with follow up Monday for staple removal. - Discharge Data Discharge Date: 10/28/18 Discharge Disposition: Home, Self-Care 01 Condition: Fair - Discharge Diagnosis/Problem(s) (1) Smoker SNOMED Code(s): 82025574 ICD Code: F17.200 - NICOTINE DEPENDENCE, UNSPECIFIED, UNCOMPLICATED Status : Acute Current Visit: Yes (2) Perforated ulcer SNOMED Code(s): 01187374 ICD Code: K27.5 - CHRONIC OR UNSP PEPTIC ULCER, SITE UNSP, WITH PERFORATION Status: Acute Priority: High Current Visit: Yes - Patient Summary/Data Operative Procedure(s) Performed: 1) ex lap. 2) grahm patch. 3) bx gastric ulcer - Patient Instructions Diet: Regular Diet as Tolerated, Drink 8-10+ Glasses/Day Activity: No Lifting Over 20 Pounds (for six weeks after surgery ) Driving: Do Not Drive (for one week ) Showering/Bathing: May Shower, No Tub Bathing/Swimming (for two weeks after surgery ) Wound/Incision Care: Keep Operative Site/Wound Site Clean and Dry Notify Provider of: Fever, Increased Pain, Swelling and Redness, Drainage, Nausea and/or Vomiting Other/Special Instructions: Follow up at the end of this coming week (Monday) with Dr. Pérez to remove your kj. - Discharge Plan *PRESCRIPTION DRUG MONITORING PROGRAM REVIEWED*: Yes *COPY OF PRESCRIPTION DRUG MONITORING REPORT IN PATIENT ABDIEL: Yes Prescriptions/Med Rec: Multivitamins [Tab-A-Margarita] 1 tab PO DAILY #30 tablet Pantoprazole [ProTONIX] 40 mg PO BIDAC #60 tab.cr Home Medications: Home Meds Multivitamins [Tab-A-Margarita] 1 tab PO DAILY #30 tablet 10/27/18 [Rx] Pantoprazole [ProTONIX] 40 mg PO BIDAC #60 tab.cr 10/27/18 [Rx] Forms: ED Department Discharge Referrals: PCP,Unknown [Ordering Only Provider] - - Discharge Summary/Plan Comment DC Time >30 min.: No - General Info Functional Status: Reports: Pain Controlled, Tolerating Diet, Ambulating, Urinating - Review of Systems General: Reports: No Symptoms Pulmonary: Reports: No Symptoms Cardiovascular: Reports: No Symptoms Gastrointestinal: Reports: No Symptoms Genitourinary: Reports: No Symptoms Musculoskeletal: Reports: No Symptoms Skin: Reports: No Symptoms Neurological: Reports: No Symptoms - Patient Data Vitals - Most Recent: Last Vital Signs Temp 36.6 C 10/28/18 04:05 Pulse 63 10/28/18 04:05 Resp 18 10/28/18 04:05 BP 98/50 L 10/28/18 04:05 Pulse Ox 94 L 10/28/18 04:05 Weight - Most Recent: 80.558 kg I&O - Last 24 hours: Intake & Output 10/27/18 10/28/18 10/28/18 22:59 06:59 14:59 Intake Total 1520 1500 Output Total 1220 1215 Balance 300 285 Med Orders - Current: Current Medications Albuterol (Ventolin Hfa) 0 gm INH Q4H PRN PRN Reason: Wheezing Last Admin: 10/27/18 14:03 Dose: 1 puff Benzocaine/Menthol (Cepacol Sore Throat) 1 lozenge MUCMEM Q2HR PRN PRN Reason: Sore Throat Last Admin: 10/26/18 10:50 Dose: 1 lozenge Enoxaparin Sodium (Lovenox) 40 mg SUBCUT Q24H KENTRELL Last Admin: 10/27/18 15:35 Dose: 40 mg Ketorolac Tromethamine (Toradol) 10 mg PO Q6H [facility] Stop: 11/01/18 10:01 Last Admin: 10/28/18 04:06 Dose: 10 mg Morphine Sulfate (Morphine) 4 mg IVPUSH Q2H PRN PRN Reason: Pain Multivitamins/Minerals/Vitamin C (Tab-A-Margarita) 1 tab PO DAILY [facility] Last Admin: 10/27/18 10:26 Dose: 1 tab Nicotine (Habitrol) 21 mg TRDERM DAILY [facility] Last Admin: 10/27/18 09:32 Dose: 21 mg Ondansetron HCl (Zofran) 4 mg IVPUSH Q4H PRN PRN Reason: Nausea Last Admin: 10/26/18 10:48 Dose: 4 mg Oxycodone/Acetaminophen (Percocet 325-5 Mg) 2 tab PO Q4H PRN PRN Reason: Abdominal Pain Last Admin: 10/28/18 00:03 Dose: 2 tab Pantoprazole Sodium (Protonix) 40 mg PO BIDAC [facility] Last Admin: 10/28/18 06:58 Dose: 40 mg Scopolamine (Transderm-Scop) 1.5 mg TRDERM Q72H PRN PRN Reason: Nausea Sodium Chloride (Saline Flush) 10 ml FLUSH ASDIRECTED PRN PRN Reason: Keep Vein Open Last Admin: 10/23/18 13:49 Dose: 10 ml Sodium Chloride (Saline Flush) 2.5 ml FLUSH ASDIRECTED PRN PRN Reason: Keep Vein Open Last Admin: 10/23/18 13:48 Dose: 2.5 ml Sodium Chloride ([place] Nasal [place]) 2 ml RAHEEM Q2H PRN PRN Reason: Congestion Last Admin: 10/27/18 14:03 Dose: 1 sprays Discontinued Medications Albuterol (Proventil Neb Soln) 2.5 mg NEB ONETIME PRN PRN Reason: Wheezing Albuterol/Ipratropium (Duoneb 3.0-0.5 Mg/3 Ml) 3 ml NEB ONETIME ONE Stop: 10/23/18 13:36 Last Admin: 10/23/18 13:46 Dose: 3 ml Atropine Sulfate (Atropine 1 Mg/Ml) 1 mg IVPUSH ASDIRECTED PRN PRN Reason: ACLS Guidelines Atropine Sulfate (Atropine 0.1 Mg/Ml) 0.5 mg IVPUSH ASDIRECTED PRN PRN Reason: Hypo-Perfusion Bisacodyl (Dulcolax) 10 mg RECTAL ONETIME ONE Stop: 10/26/18 13:48 Last Admin: 10/26/18 15:21 Dose: 10 mg Dextrose/Water (Dextrose 50% In Water) 50 ml IVPUSH ASDIRECTED PRN PRN Reason: Hypoglycemia Epinephrine HCl (Adrenalin) 1 mg IVPUSH NOW ONE Stop: 10/23/18 20:21 Last Admin: 10/24/18 00:07 Dose: Not Given Fentanyl (Sublimaze) Confirm Administered Dose 250 mcg .ROUTE .STK-MED ONE Stop: 10/23/18 16:51 Fentanyl (Sublimaze) 50 - 100 mcg IVPUSH Q5M PRN PRN Reason: Pain Guaifenesin/Dextromethorphan (Robitussin Dm) 5 ml PO Q4H PRN PRN Reason: Cough Last Admin: 10/24/18 16:23 Dose: 5 ml Hydromorphone HCl (Dilaudid) 1 mg IVPUSH ONETIME ONE Stop: 10/23/18 13:37 Last Admin: 10/23/18 13:48 Dose: 1 mg Hydromorphone HCl (Dilaudid) 1 mg IVPUSH ONETIME ONE Stop: 10/23/18 14:35 Last Admin: 10/23/18 14:46 Dose: 1 mg Hydromorphone HCl (Dilaudid) Confirm Administered Dose 2 mg .ROUTE .STK-MED ONE Stop: 10/23/18 18:18 Hydromorphone HCl (Dilaudid) Confirm Administered Dose 2 mg .ROUTE .STK-MED ONE Stop: 10/23/18 19:20 Sodium Chloride (Normal Saline) 1,000 mls @ 999 mls/hr IV STAT ONE Stop: 10/23/18 14:36 Last Infusion: 10/23/18 14:33 Dose: 999 mls/hr Lactated Ringer's (Ringers, Lactated) 1,000 mls @ 150 mls/hr IV ASDIRECTED KENTRELL Last Admin: 10/23/18 23:11 Dose: 150 mls/hr Cefoxitin Sodium 2 gm/ Premix 50 mls @ 100 mls/hr IV ONETIME ONE Stop: 10/23/18 16:28 Last Admin: 10/24/18 00:10 Dose: Not Given Lactated Ringer's (Ringers, Lactated) 1,000 mls @ 150 mls/hr IV ASDIRECTED [facility] Cefoxitin Sodium 2 gm/ Sodium (Chloride) 100 mls @ 200 mls/hr IV ONETIME ONE Stop: 10/23/18 16:28 Last Admin: 10/23/18 16:14 Dose: 200 mls/hr Acetaminophen (Ofirmev) Confirm Administered Dose 100 mls @ as directed IV .STK- MED ONE Stop: 10/23/18 19:22 Pantoprazole Sodium 80 mg/ (Sodium Chloride) 100 mls @ 10 mls/hr IV Q24H [facility] Last Admin: 10/23/18 23:49 Dose: 10 mls/hr Acetaminophen 1,000 mg/ Premix 100 mls @ 400 mls/hr IV Q6H PRN PRN Reason: Pain Last Admin: 10/25/18 00:21 Dose: 400 mls/hr Lactated Ringer's (Ringers, Lactated) 1,000 mls @ 125 mls/hr IV ASDIRECTED [facility] Last Admin: 10/27/18 05:07 Dose: 125 mls/hr Cefoxitin Sodium 1 gm/ Premix 50 mls @ 100 mls/hr IV Q6H [facility] Last Admin: 10/27/18 09:29 Dose: 100 mls/hr Iopamidol (Isovue Multipack-370 (76%)) 100 ml IVPUSH ONETIME STA Stop: 10/23/18 18:16 Last Admin: 10/23/18 18:16 Dose: 100 ml Lidocaine (Xylocaine-Mpf 2%) Confirm Administered Dose 5 ml .ROUTE .STK-MED ONE Stop: 10/23/18 16:51 Midazolam HCl (Versed 1 Mg/Ml) Confirm Administered Dose 2 mg .ROUTE .STK-MED ONE Stop: 10/23/18 16:51 Morphine Sulfate (Morphine [employer] 30 Mg In 30 Ml) 30 mg IV ASDIRECTED [facility]; Protocol Last Admin: 10/26/18 10:51 Dose: 30 mg Naloxone HCl (Narcan) 0.1 mg IVPUSH ASDIRECTED PRN PRN Reason: Respiratory Depression Ondansetron HCl (Zofran) 4 mg IVPUSH ONETIME ONE Stop: 10/23/18 13:40 Last Admin: 10/23/18 13:48 Dose: 4 mg Ondansetron HCl (Zofran) Confirm Administered Dose 4 mg .ROUTE .STK-MED ONE Stop: 10/23/18 16:51 Pantoprazole Sodium (Protonix Iv) 80 mg IVPUSH .BOLUS ONE Stop: 10/23/18 13:37 Last Admin: 10/23/18 13:49 Dose: 80 mg Pantoprazole Sodium (Protonix Iv) 40 mg IVPUSH BID [facility]RE[facility] Last Admin: 10/27/18 09:27 Dose: 40 mg Propofol (Diprivan 20 Ml) Confirm Administered Dose 200 mg .ROUTE .STK-MED ONE Stop: 10/23/18 16:51 Rocuronium [place] (Zemuron) Confirm Administered Dose 100 mg .ROUTE .STK-MED ONE Stop: 10/23/18 16:51 - Exam General: Reports: Alert, Oriented HEENT: Reports: Pupils Equal, Pupils Reactive Neck: Reports: Supple Lungs: Reports: Normal Respiratory Effort Cardiovascular: Reports: Regular Rate GI/Abdominal Exam: Soft, Non-Tender, No Distention, No Mass, Other (serous drain output ) Back Exam: Reports: Normal Inspection
[2018-10-28] MEDS: Multivitamin Tab PO SCH (09:13)
[2018-10-28] MEDS: Albuterol 8 GM Inhaler INH PRN (09:14)
[2018-10-28] MEDS: Nicotine 21 MG/24 Hr Patch TRDERM SCH (09:23)
== END 2018-10-28 10:40 | disposition home or self-care (01) | DRG 327 ==
LOC: MW.ED 13:15 → MW.SDS 16:18 → MW.MS 20:24
PROVIDERS: ADMIT Surgery; ATTEND Surgery
PROC: 0DU607Z Supplement Stomach with Autologous Tissue Substitute, Open Approach (ICD-10-PCS; principal; 2018-10-23)
PROC: 0DB60ZX Excision of Stomach, Open Approach, Diagnostic (ICD-10-PCS; principal; 2018-10-23)
DX: K25.5 Chronic or unspecified gastric ulcer with perforation (principal); J98.11 Atelectasis; J44.9 Chronic obstructive pulmonary disease, unspecified; F17.210 Nicotine dependence, cigarettes, uncomplicated
CPT/HCPCS: 36415; 71045; 71045-26; 71101-26-LT; 71101-LT; 74018; 74018-26; 74177; 74177-26; 80053; 82150; 83605; 83690; 84484; 85025; 85027; 85610; 86677; 86850; 86900; 86901; 86920; 86921; 86922; 88305; 88312; 93005; 94640; 94664; 96361; 96365; 96375; 96376; 99285-25; A9270-GY; C9113; J0131; J0694; J1170; J1650; J2001; J2250; J2274; J2405; J2704; J3010; J7030; J7040; J7120; J7620-GY; Q9967

== ENCOUNTER 2020-04-06 21:55 | Emergency (ER) | payer SELFPAY ==
[2020-04-06] MEDS ORDERED: Sodium Chloride 0.9% 10 ML Syringe FLUSH PRN (22:02)
[2020-04-06] MEDS ORDERED: Ondansetron 4 MG/2 ML SDV ONE (22:02)
[2020-04-06] MEDS ORDERED: Sodium Chloride 0.9% 1,000 ML IV ONE (22:02)
[2020-04-06] MEDS ORDERED: Morphine 4 MG/ML Syringe ONE (22:02)
[2020-04-06] MEDS ORDERED: Ondansetron 4 MG/2 ML SDV IVPUSH ONE (22:02)
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
[2020-04-06 22:28] LABS: BLOOD UREA NITROGEN,BUN 14 mg/dL (7.0-18.0); CARBON DIOXIDE,CO2 24.4 mmol/L (21.0-32.0); CHLORIDE,CL 99 mmol/L (98-107); GLUCOSE RANDOM 144 mg/dL (74-106); LIPASE 98 U/L (73-393); POTASSIUM,K 3.9 mmol/L (3.5-5.1); SODIUM,NA 135 mmol/L (136-148)
[2020-04-06] MEDS ORDERED: fentaNYL 100 MCG/2 ML SDV IVPUSH PRN (22:42)
[2020-04-06] MEDS: Morphine 4 MG/ML Syringe IM ONE ×2 (22:58→22:59)
[2020-04-06] MEDS ORDERED: Iopamidol 755 MG/ML 500 ML Multipack Bottle IVPUSH STA (22:58)
[2020-04-06] MEDS: Sodium Chloride 0.9% 2.5 ML Syringe FLUSH PRN ×2 (22:59→23:18)
[2020-04-06] MEDS ORDERED: Morphine 4 MG/ML Syringe IVPUSH ONE (23:00)
[2020-04-06] MEDS ORDERED: Sodium Chloride 0.9% 1,000 ML IV SCH (23:00)
[2020-04-06] MEDS ORDERED: Lidocaine 1% with EPINEPHrine 1:100,000 20 ML MDV ONE (23:04)
--- NOTE | 2020-04-06 23:04 | CR ---
HISTORY: Trauma. TECHNIQUE: Three views of the left shoulder. COMPARISON: Chest CT 04/06/2020. FINDINGS: There is an acute comminuted displaced fracture of the left scapular body. The subtle fracture of the coracoid seen on CT is less well seen radiographically. Multiple left-sided rib fractures. No acute proximal humeral fracture or glenohumeral joint dislocation. Bilateral pneumothoraces. IMPRESSION: 1. Acute comminuted fracture of the left scapula. 2. Multiple acute left-sided rib fractures. 3. Bilateral pneumothoraces. Please see chest CT report further details. 4. No proximal humeral fracture or glenohumeral joint dislocation. Dictated by Mendoza Ridley MD @ 04/06/2020 11:04:20 PM Dictated by: Mendoza Ridley MD @ 04/06/2020 23:04:25 (Electronically Signed)
[2020-04-06] MEDS ORDERED: Midazolam 1 MG/ML 2 ML SDV ONE ×3 (23:08→23:31)
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
[2020-04-06] MEDS ORDERED: Lidocaine 1% with EPINEPHrine 1:100,000 20 ML MDV INJECT ONE (23:15)
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
[2020-04-06] MEDS ORDERED: Midazolam 1 MG/ML 2 ML SDV IVPUSH ONE ×3 (23:16→23:34)
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
--- NOTE | 2020-04-07 | PCM.PRNOTE ---
- Free Text/Narrative Note: Anes NOte I was called to ER to provide IV sedation for chest tube insertion. A total of 10 mg versed was given over a 30 minue period in slow incremental doses. Tolerated well. Time with patient [id number] Brando Joseph SAILMAKER
--- NOTE | 2020-04-07 00:01 | PCM.SN.2 ---
- Free Text/Narrative Note: pt seen, chart reviewed; cx dictated, B ptx, would benefit b chesttube; [id number]
--- NOTE | 2020-04-07 00:03 | PCM.OPNOTE ---
- General Post-Op/Procedure Note Date of Surgery/Procedure: 04/07/20 Operative Procedure(s): chest tube placement R chest Findings: gush of air, cw tension ptx on R postprocedure, chest tube in right place, and lung is completely up [id number] Pre Op Diagnosis: B ptx Post-Op Diagnosis: Same Anesthesia Technique: Moderate Sedation Primary Surgeon: Wally Natarajan Complications: None Condition: Good
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
--- NOTE | 2020-04-07 00:21 | CR ---
HISTORY: Bilateral chest tube placement. COMPARISON: CT of the chest from today at 22 20 hours FINDINGS: A portable semi-erect AP view of the chest was obtained at 23 48 hours. During the interval, bilateral chest tubes have been placed with their tips incomplete directed. The previously-seen massive bilateral pneumothoraces are no longer evident. There is no sign of pneumomediastinum or pneumopericardium. There is increased subcutaneous emphysema in the left lateral lower chest wall, now moderate. No definite subcutaneous emphysema is seen on the right. Again seen is mild deformity of the left scapular body consistent with the known scapular fracture. There is mild deformity of the left lateral 2nd rib consistent with the fracture seen on CT. There is mild deformity of the right posterior-lateral 6th and 7th ribs consistent with old, healed rib fractures, although I cannot exclude acute fractures. The other rib fractures seen on CT are not evident. The lungs themselves are clear, with no sign of any pulmonary contusion or focal infiltrate. The heart remains normal in size. The mediastinum is normal in appearance. IMPRESSION: Status post placement of bilateral chest tubes with no sign of pneumothorax. Moderate subcutaneous emphysema in the left lateral lower chest, increased. Deformity of the ribs consistent with rib fractures, likely a combination of acute fractures and old fractures. Deformity of the left scapular body consistent with known scapular fracture. No sign of pulmonary infiltrate. Dictated by Familia Damon MD @ Apr 07 2020 12:13AM Signed by Dr. Fmailia Damon @ Apr 07 2020 12:20AM
[2020-04-07] MEDS ORDERED: fentaNYL 50 MCG/ML SDV IVPUSH ONE (00:29)
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
--- NOTE | 2020-04-07 01:12 | OR ---
SURGEON: Wally Natarajan MD DATE OF PROCEDURE: 04/06/[address] Fenton. PREOPERATIVE DIAGNOSIS: Bilateral pneumothorax. PROCEDURE PERFORMED: Chest tube to the right side. PRIMARY SURGEON: Wally Natarajan MD. COMPLICATIONS: None. FINDING: Upon insertion of the chest tube, gush of air, stymified the chest tube consistent with tension pneumo. DESCRIPTION OF PROCEDURE: Procedure was performed at the bedside. Risks and benefits discussed with the patient. Informed consent in chart. The right chest area was prepped and draped in a sterile fashion and local anesthetic infiltrated the skin above the nipple on the midclavicular line and using a skin scalpel, skin incision was made and blunt dissection and made a hole in the chest wall and a [place] 32 chest tube was inserted into the right pleural cavity. Upon insertion, gush of air, stymified the chest tube consistent with tension pneumo and the chest tube suellen was at 10 and anchored to the skin for appropriate dressing and postop chest x-ray shows lung is up. Please refer to Dr. Fenton's note on the left chest replacement. DAKOTA / JAMARCUS /[id number] MTDD
== END 2020-04-07 01:29 ==
LOC: MW.ED 21:55
DX: S27.0XXA Traumatic pneumothorax, initial encounter (principal); S22.41XA Multiple fractures of ribs, right side, initial encounter for closed fracture; S42.102A Fracture of unspecified part of scapula, left shoulder, initial encounter for closed fracture; S38.1XXA Crushing injury of abdomen, lower back, and pelvis, initial encounter; S80.212A Abrasion, left knee, initial encounter; F17.210 Nicotine dependence, cigarettes, uncomplicated; V04.99XA Pedestrian with other conveyance injured in collision with heavy transport vehicle or bus, unspecified whether traffic or nontraffic accident, initial encounter
CPT/HCPCS: 00520; 32551; 36415; 51702; 71045; 71045-26; 71260; 71260-26; 73030-26-LT; 73030-LT; 73562-26-RT; 73562-RT; 74177; 74177-26; 80053; 80305-QW; 80307; 83690; 85025; 85610; 85730; 86850; 86900; 86901; 93005; 96374; 96375; 96376; 99285-25; J2250; J2270; J2405; J3010; J7030; Q9967

== ENCOUNTER 2020-04-29 20:16 | Emergency (ER) | payer SELFPAY ==
[2020-04-29] MEDS ORDERED: Sulfamethoxazole/Trimethoprim 800-160 MG Tab PO ONE (21:20)
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
--- NOTE | 2020-04-29 21:58 | CR ---
Chest: 2 views of the chest were obtained. Comparison: Prior chest x-ray of 04/06/20. Increased areas of density is noted within the left chest most likely relating to changes from previous chest tube. Blunting of the costophrenic angles are noted most likely relating to chest tube placements. Healed right-sided and left-sided rib fractures appear to be present. No pneumothorax is seen. No discrete air is noted within the chest wall. Heart size and mediastinum are normal. Impression: 1. No air within the chest wall. 2. Other findings within chest most likely relating to scarring from previous chest tube placements. Diagnostic code #3 Study was dictated in MDT
== END 2020-04-29 22:05 | disposition home or self-care (01) ==
LOC: MW.ED 20:16 → EEVIPCON 20:16 → MW.ED 22:05
DX: T81.41XA Infection following a procedure, superficial incisional surgical site, initial encounter (principal); L03.313 Cellulitis of chest wall; F17.210 Nicotine dependence, cigarettes, uncomplicated
CPT/HCPCS: 71046; 87070; 87077; 87186; 99284; A9270; 99283

== ENCOUNTER 2020-06-04 11:19 | Emergency (ER) | payer SELFPAY ==
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
[2020-06-04 12:28] LABS: BLOOD UREA NITROGEN,BUN 11 mg/dL (7.0-18.0); CARBON DIOXIDE,CO2 22.6 mmol/L (21.0-32.0); CHLORIDE,CL 103 mmol/L (98-107); GLUCOSE RANDOM 100 mg/dL (74-106); POTASSIUM,K 4.2 mmol/L (3.5-5.1); SODIUM,NA 136 mmol/L (136-148)
--- NOTE | 2020-06-04 12:48 | CR ---
Chest: 2 views of the chest were obtained. Comparison: Prior chest x-ray of 04/29/20. Areas of increased density are noted on the lateral left chest compatible with callus from multiple healing rib fractures. Lesser but similar findings are seen on the right side compatible with healing rib fractures. Lungs show no acute parenchymal change. Diaphragms are flattened on the lateral view which is compatible with emphysematous change. Minimal scoliosis is noted within the spine. Mild degenerative change is noted within the spine. Impression: 1. Healing bilateral rib fractures. 2. Emphysematous change. 3. Nothing acute is otherwise seen. Diagnostic code #2 This report was dictated in MDT
[2020-06-04] MEDS ORDERED: Albuterol 6.7 GM Inhaler INH ONE (12:54)
[2020-06-04] MEDS ORDERED: Albuterol HFA 18 Gm Inhaler ONE (12:58)
== END 2020-06-04 13:09 | disposition home or self-care (01) ==
LOC: MW.ED 11:19
DX: J40 Bronchitis, not specified as acute or chronic (principal); F17.210 Nicotine dependence, cigarettes, uncomplicated
CPT/HCPCS: 36415; 71046; 71046-26; 80053; 84484; 85025; 93005; 99284; 99285-25; J3535-GY

== ENCOUNTER 2023-05-13 14:11 | Emergency (ER) | payer SELFPAY | END 2023-05-13 15:43 | disposition home or self-care (01) | LOC: MW.ED 14:11 | DX: K04.7 Periapical abscess without sinus (principal); Z72.0 Tobacco use | CPT/HCPCS: 41800; 99283 ==